=== PATIENT | female | born 1965 | race Caucasian/White ===

== ENCOUNTER 2017-01-29 17:40 | Emergency (ER) | payer OTHER ==
[~2017-01-29] VITALS: Ht 152.4 cm; Wt 105.5 kg
[~2017-01-29 17:40] MED LIST: CETI10CA PO; CLON0.5T4 PO; CYCL-319 PO; ESTR1TAB80 PO; HYDR-3498 PO; IBUP-1542 PO; OMEP20TA42 PO; SERT25TA PO; TRAZ100T15 PO; [UNRECOGNIZED DRUG - CODE] PO
[2017-01-29 17:41] VITALS: Ht 152.4 cm; Wt 105.5 kg
--- NOTE | 2017-01-29 19:19 | ERD ---
ER Documentation Chief Complaint Date/Time DATE: 01/29/17 TIME: 19:16 Chief Complaint back pain HPI Female presents to the ER with mid back pain that started this morning. Patient has had lower back pain in the past and states she has had a lot of back pain in general for the last 2-3 months. Patient states that mid back pain is severe and constant it is worse whenever she moves or twists her back. Patient did not fall. She denies any shortness of breath or chest pain. Patient states that pain radiates up into her right shoulder and into her right ear. Patient has been taking ibuprofen for the pain however it does not help. Patient denies any urinary bowel incontinence. She denies any fevers or chills. She denies any recent cough or cold symptoms. ROS 12 point review of systems was done, all negative except per HPI. Medications Home Meds Active Scripts Naproxen* (Naprosyn*) 500 Mg Tablet, 500 MG PO BID Y for PAIN AND/OR INFLAMMATION, #30 TAB Prov:BERNY POP 01/29/17 Tramadol HCl (Tramadol HCl) 50 Mg Tablet, 50 MG PO Q4 Y for PAIN, #20 TAB Prov:BERNY POP 01/29/17 Cetirizine Hcl* (Zyrtec*) 10 Mg Capsule, 10 MG PO DAILY, #10 TAB.CHEW Prov:FAMILIA PARKS MD 05/16/16 Ibuprofen* (Motrin*) 600 Mg Tab, 600 MG PO Q6H Y for PAIN, #20 TAB Prov:FAMILIA PARKS MD 05/16/16 Cyclobenzaprine Hcl* (Cyclobenzaprine Hcl*) 10 Mg Tablet, 10 MG PO Q8 Y for PAIN , #18 TAB Prov:FAMILIA PARKS MD 05/16/16 Hydrocodone Bit-Acetaminophen* ([place]*) 5-325 Mg Tab, 1 TAB PO Q4H Y for PAIN, # 14 TAB Prov:FAMILIA PARKS MD 05/16/16 Reported Medications Sertraline Hcl* (Zoloft*) 25 Mg Tablet, 25 MG PO DAILY, #30 TAB 04/07/16 Pseudoephedrine Hcl* (Nasal Decongestant*) 30 Mg Tablet, 30 MG PO BID Y for CONGESTION, TAB 01/19/16 Trazodone Hcl* (Trazodone Hcl*) 100 Mg Tablet, 300 MG PO QHS, #30 TAB 01/19/16 Clonazepam* (Clonazepam*) 0.5 Mg Tablet, 0.5 MG PO QHS, TAB 01/19/16 Estrogen,Conj-Medroxyprogest Acet (Prempro) 0.3-1.5 Mg Tablet, 1 TAB PO DAILY, TAB 01/19/16 Omeprazole (Omeprazole) 20 Mg Tablet.dr, 20 MG PO AC BREAKFAST 04/26/11 Allergies Allergies: Coded Allergies: No Known Drug Allergies (Verified Allergy, Mild, 01/19/16) PMhx/Soc History of Surgery: No Anesthesia Reaction: No Hx Neurological Disorder: No Hx Respiratory Disorders: No Hx Cardiac Disorders: Yes (HTN) Hx Psychiatric Problems: Yes (PANIC ATTACKS, ANXIETY, DEPRESSION) Hx Miscellaneous Medical Probl: No Hx Alcohol Use: No Hx Substance Use: No Hx Tobacco Use: No Smoking Status: Never smoker Physical Exam Vitals Vital Signs Date Time Temp Pulse Resp B/P Pulse Ox O2 Delivery O2 Flow Rate FiO2 01/29/17 17:41 97.0 73 20 135/81 98 Physical Exam GENERAL: The patient is well developed and appropriate for usual state of health , in no apparent distress. NECK: C-spine is soft and supple. There is no cervical lymphadenopathy. CHEST: Clear to auscultation bilaterally. There are no rales, wheezes or rhonchi. HEART: Regular rate and rhythm. No murmurs, clicks, rubs or gallops. ABDOMEN: Soft, nontender and nondistended. Good bowel sounds. No rebound or guarding. No gross peritonitis. No gross organomegaly or masses. No Nash sign or McBurney point tenderness. No pulsatile abdominal mass. BACK: No midline or flank tenderness. Tender to palpation to the thoracic spine. Tense paraspinal muscles. Negative leg raise test. No step- offs. EXTREMITIES: Patient has full range of motion of her right shoulder. Negative drop arm test. Neurovascularly intact. No deformities, redness, swelling. NEURO: Alert and oriented. Results 24 hrs Current Medications Medications (Trade) Dose Ordered Sig/Eve Route PRN Reason Start Time Stop Time Status Last Admin Dose Admin Acetaminophen/ Hydrocodone Bitart ([place] (5/325)) 1 tab ONCE ONCE PO 01/29/17 19:30 3/25/17 19:31 DC 01/29/17 19:10 Ketorolac Tromethamine (Toradol) 60 mg ONCE STAT IM 01/29/17 20:19 01/29/17 20:20 DC Procedures/MDM Differential Diagnosis includes but is not limited to back strain, vertebral fracture, epidural abscess, cauda equina, herniated disc, AAA rupture, kidney stones, UTI, pyelonephritis. Patient's x-ray was positive for idiopathic skeletal hyperostosis. May be the cause of her pain. Patient is afebrile and well-appearing. Patient was given [place] and Toradol here in the ER. She will be sent home with tramadol and ibuprofen. She needs to urgently follow up with an orthopedic doctor for this problem. At this time suspicion for cauda equina or epidural abscess is low. Patient is neurovascularly intact to her lower extremities and her upper extremities. Patient needs to follow-up with her PCP within 1-2 days and obtain referral or return to ER sooner if symptoms worsen. My medical decision making was shared with the patient she understands and agrees with plan. Departure Diagnosis: Primary Impression: Back pain Condition: Stable BERNY POP Jan 29, 2017 19:19
[2017-01-29] MEDS ORDERED: HYDROCODONE/APAP (5/325) TAB PO ONE (19:30)
--- NOTE | 2017-01-29 20:15 | RADRPT ---
PROCEDURE: XR thoracic spine CLINICAL INDICATION: Mid back pain. TECHNIQUE: AP, swimmers and lateral views of the thoracic spine were obtained. COMPARISON: None available FINDINGS: Bone architecture and mineralization are preserved. Thoracic kyphosis is preserved. Vertebral body s tature is intact. No significant disk space narrowing is present. No lytic or blastic lesion is sha dent. Bridging syndesmophytes anteriorly and to the right are present from at T5-T12 raising concern for diffuse idiopathic skeletal hyperostosis The posterior elements and paraspinal soft tissues ar e normal. RPTAT:HJJR IMPRESSION: 1. Bridging anterior right paracentral syndesmophytes from the T5-T12 level raise concern for diffus e idiopathic skeletal hyperostosis. 2. No disk space narrowing or acute thoracic spine abnormality. Physician Agustin Date Time Electronically viewed and signed by Physician Agustin on 01/29/2017 20:15 /
[2017-01-29] MEDS ORDERED: KETOROLAC 60 MG INJ IM STA (20:19)
[2017-01-29] MEDS ORDERED: TRAM50TA2 PO (20:27)
[2017-01-29] MEDS ORDERED: NAPR-260 PO (20:28)
[2017-01-29 20:58] VITALS: BP 140/77; PULSE 77; RESP 20; TEMP 98.3
== END 2017-01-29 21:00 | disposition home or self-care (01) ==
LOC: FTE 17:40
DX: M54.5 Low back pain (principal); I10 Essential (primary) hypertension
CPT/HCPCS: 72072; 96372; J1885; Z7502; Z7610

== ENCOUNTER 2017-02-14 16:55 | Emergency (ER) | payer OTHER ==
[~2017-02-14] VITALS: Ht 152.4 cm; Wt 101.0 kg
[~2017-02-14 16:55] MED LIST changes: +NAPR-260 PO; +TRAM50TA2 PO
[2017-02-14 16:57] VITALS: Ht 152.4 cm; Wt 101.0 kg
[2017-02-14] MEDS ORDERED: CYCL-319 PO (18:42)
[2017-02-14] MEDS ORDERED: NAPR-260 PO (18:42)
[2017-02-14] MEDS ORDERED: KETOROLAC 30 MG INJ IM STA (18:45)
--- NOTE | 2017-02-14 19:04 | ERD ---
ER Documentation Chief Complaint Date/Time DATE: 02/14/17 TIME: 18:56 Chief Complaint RIGHT SHOULDER PAIN RADIAITING TO NECK. DENIES ANY TRAUMA HPI Patient is a 51-year-old female with past medical history of hypertension presents emergency department with her back pain and right shoulder pain. Patient states pain is been present for last 2 months. Patient states that she was seen here [facility] 1 month ago for similar pain. Patient denies any recent trauma or falls. Patient denies any chest pain, shortness of breath, left shoulder pain, left arm pain or diaphoresis. Patient states that she had "2 episodes of spasms today". Patient states his been taking tramadol which does help with the pain. Patient states that she does have an appointment pending to see a conveyor line battery charger. Incontinence, stool incontinence, night pain, fever, chills. ROS All systems reviewed and are negative except as per history of present illness. Medications Home Meds Active Scripts Cyclobenzaprine Hcl* (Cyclobenzaprine Hcl*) 10 Mg Tablet, 10 MG PO TID, #15 TAB Prov:CATINA JURADO PA-C 02/14/17 Naproxen* (Naprosyn*) 500 Mg Tablet, 500 MG PO BID Y for PAIN AND/OR INFLAMMATION, #30 TAB Prov:CATINA JURADO PA-C 02/14/17 Naproxen* (Naprosyn*) 500 Mg Tablet, 500 MG PO BID Y for PAIN AND/OR INFLAMMATION, #30 TAB Prov:BERNY POP 01/29/17 Tramadol HCl (Tramadol HCl) 50 Mg Tablet, 50 MG PO Q4 Y for PAIN, #20 TAB Prov:BERNY POP 01/29/17 Cetirizine Hcl* (Zyrtec*) 10 Mg Capsule, 10 MG PO DAILY, #10 TAB.CHEW Prov:FAMILIA PARKS MD 05/16/16 Ibuprofen* (Motrin*) 600 Mg Tab, 600 MG PO Q6H Y for PAIN, #20 TAB Prov:FAMILIA PARKS MD 05/16/16 Cyclobenzaprine Hcl* (Cyclobenzaprine Hcl*) 10 Mg Tablet, 10 MG PO Q8 Y for PAIN , #18 TAB Prov:FAMILIA PARKS MD 05/16/16 Hydrocodone Bit-Acetaminophen* ([place]*) 5-325 Mg Tab, 1 TAB PO Q4H Y for PAIN, # 14 TAB Prov:FAMILIA PARKS MD 05/16/16 Reported Medications Sertraline Hcl* (Zoloft*) 25 Mg Tablet, 25 MG PO DAILY, #30 TAB 04/07/16 Pseudoephedrine Hcl* (Nasal Decongestant*) 30 Mg Tablet, 30 MG PO BID Y for CONGESTION, TAB 01/19/16 Trazodone Hcl* (Trazodone Hcl*) 100 Mg Tablet, 300 MG PO QHS, #30 TAB 01/19/16 Clonazepam* (Clonazepam*) 0.5 Mg Tablet, 0.5 MG PO QHS, TAB 01/19/16 Estrogen,Conj-Medroxyprogest Acet (Prempro) 0.3-1.5 Mg Tablet, 1 TAB PO DAILY, TAB 01/19/16 Omeprazole (Omeprazole) 20 Mg Tablet.dr, 20 MG PO AC BREAKFAST 04/26/11 Allergies Allergies: Coded Allergies: No Known Drug Allergies (Verified Allergy, Mild, 01/19/16) PMhx/Soc History of Surgery: No Anesthesia Reaction: No Hx Neurological Disorder: No Hx Respiratory Disorders: No Hx Cardiac Disorders: Yes (HTN) Hx Psychiatric Problems: Yes (PANIC ATTACKS, ANXIETY, DEPRESSION) Hx Miscellaneous Medical Probl: No Hx Alcohol Use: No Hx Substance Use: No Hx Tobacco Use: No FmHx Family History: No diabetes Physical Exam Vitals Vital Signs Date Time Temp Pulse Resp B/P Pulse Ox O2 Delivery O2 Flow Rate FiO2 02/14/17 16:57 97.7 80 18 159/72 98 Physical Exam GENERAL: Well-developed, well-nourished female. Appears in no acute distress. Speaking in full sentences HEAD: Normocephalic, atraumatic. EYES: Pupils are equally reactive bilaterally. EOMs grossly intact. No conjunctival erythema. ENT: Moist mucous membranes. No uvula deviation. No kissing tonsils. NECK: Supple. No meningismus. Normal range of motion of the neck. LUNG: Clear to auscultation bilaterally. No rhonchi, wheezing, rales or coarse breath sounds. Tender to palpation of the chest wall. Pain is reproducible. HEART: Regular rate and rhythm. No murmurs, rubs or gallops. ABDOMEN: Soft, nontender, and nondistended. Positive bowel sounds in all four quadrants. No rebound tenderness, no guarding. (-) McBurney's point tenderness. No CVA tenderness. BACK: No midline tenderness. Tender to palpation of the right trapezius muscles. EXTREMITIES: Equal pulses bilaterally. No peripheral clubbing, cyanosis or edema. No unilateral leg swelling. NEUROLOGIC: Alert and oriented. Moving all four extremities without any difficulty. Normal speech. Steady gait. SKIN: Normal color. Warm and dry. No rashes or lesions. RIGHT ARM: No obvious deformity, erythema, ecchymosis or swelling. Skin intact. No bursal swelling. Decreased range of motion secondary to pain. Patient is able to extend above 100. Tender to palpation of the anterior shoulder, anterior chest wall. Nontender to palpation of the humerus, elbow, forearm, wrist or hand.. Sensation intact to light touch. Neurovascularly intact. (Able to give thumbs up, make an ok sign, cross digits 2 and 3, thumb to pinky opposition. 2+ RP.) No snuffbox tenderness. Results 24 hrs Current Medications Medications (Trade) Dose Ordered Sig/Eve Route PRN Reason Start Time Stop Time Status Last Admin Dose Admin Ketorolac Tromethamine (Toradol) 30 mg ONCE STAT IM 02/14/17 18:45 02/14/17 18:46 DC 02/14/17 18:51 Procedures/MDM ED COURSE: The patient was stable throughout ED course. I kept the patient and/or family informed of laboratory and diagnostic imaging results throughout the ED course. MEDICATIONS GIVEN: Toradol IM Patient tolerated medication well with no adverse reactions. Patient reported improvement in pain. MEDICAL DECISION MAKING: This is a 51-year-old female who presents with lower back pain, right shoulder pain, neck pain 2 months. Vital signs were reviewed. Patient was afebrile. Patient denied any recent trauma, falls, saddle anesthesia, urinary incontinence , stool incontinence, fever, chills or night pain. Given that patient denied any recent falls or trauma, at this time x-ray imaging was not indicated. At this time, the patient's presentation is most consistent with muscle strain versus muscle spasms. I have a much lower clinical concern for cervical spine dislocation, cervical spine fracture, epidural abscess, meningitis, whiplash injury, spinal fracture, cauda equina, pyelonephritis, spinal metastasis, osteomyelitis, ACS, or any acute neurological deficit. We will to rule out any rheumatological disorders including PMR at this time. Patient was advised to follow-up with her primary care physician for referral to see a neurologist.. PRESCRIPTIONS: Flexeril Naproxen DISCHARGE: At this time, patient is stable for discharge and outpatient management. RICE therapy and ROM exercises were advised to avoid stiffness. I have instructed the patient to follow-up with his/her primary care physician in 1-2 days. I have discussed with the patient the possibility of needing to see an director of orthopedics/ conveyor line battery charger for further workup and imaging if the pain persists. I have instructed the patient to promptly return to the ER for any new or worsening symptoms including increased pain, swelling, redness, warmth or fever. The patient and/or family expressed understanding of and agreement with this plan. All questions were answered. Home care instructions were provided. Departure Diagnosis: Primary Impression: Shoulder pain Laterality: right Chronicity: unspecified Qualified Code: M25.511 - Right shoulder pain, unspecified chronicity Condition: Stable Patient Instructions: Shoulder Pain (Uncertain Cause) Referrals: KATELYN BEY MD (PCP) [facility] Additional Instructions: Call your primary care doctor TOMORROW for an appointment during the next 1-2 days.See the doctor sooner or return here if your condition worsens before your appointment time. Patient may need to follow-up with an director of orthopedics for further management of her shoulder pain. Unable to rule out any ligament or tendon injuries at this time. Patient may need an MRI and outpatient basis. CATINA JURADO PA-C Feb 14, 2017 19:04
[2017-02-14 19:18] VITALS: BP 157/92; PULSE 69; RESP 16; TEMP 98.8
== END 2017-02-14 19:17 | disposition home or self-care (01) ==
LOC: FTE 16:55
DX: M25.511 Pain in right shoulder (principal); I10 Essential (primary) hypertension
CPT/HCPCS: 96372; J1885; Z7502

== ENCOUNTER 2017-03-02 16:54 | Emergency (ER) | payer OTHER ==
[~2017-03-02] VITALS: Ht 157.5 cm; Wt 104.0 kg
[2017-03-02 17:00] VITALS: Ht 157.5 cm; Wt 104.0 kg
[2017-03-02] MEDS ORDERED: KETOROLAC 60 MG INJ IM STA (18:05)
--- NOTE | 2017-03-02 19:19 | RADRPT ---
PROCEDURE: XR Foot. CLINICAL INDICATION: Left foot pain. TECHNIQUE: AP, lateral and oblique views of the left foot was obtained. The images were reviewed on a PACS workstation. COMPARISON: None. FINDINGS: The bones of the foot appear intact, with no evidence of fracture, dislocation, or subluxation. The joint spaces are preserved. Bone mineralization is normal. The soft tissue structures are intact. Do rsal and plantar calcaneal spurs are seen. IMPRESSION: Dorsal and plantar calcaneal spurs. RPTAT: HPNM Physician Sandra Date Time Electronically viewed and signed by Physician Sandra on 03/02/2017 19:19 /
[2017-03-02] MEDS ORDERED: NAPR-260 PO (20:11)
--- NOTE | 2017-03-02 20:17 | ERD ---
ER Documentation Chief Complaint Date/Time DATE: 03/02/17 TIME: 20:14 Chief Complaint MECHANICAL FALL, LEFT BIG TOE PAIN HPI 52-year-old female patient with no significant past medical history presents to the ED complaining of a mechanical fall that occurred 1 week ago. States that she sustained a left great toe injury. Reports that she also has rug back on her bilateral forearms and shins. States that she accidentally fell down on a few stairs but denies any head or neck injuries. Denies any loss of consciousness. Denies any loss of sensation, loss of range of motion, chest pain, shortness of breath, nausea, vomiting, weakness, numbness or tingling, saddle anesthesia, urine or bowel incontinence. ROS All systems reviewed and are negative except as per history of present illness. Medications Home Meds Active Scripts Naproxen* (Naprosyn*) 500 Mg Tablet, 500 MG PO BID Y for PAIN AND/OR INFLAMMATION, #30 TAB take with food Prov:VICTOR HUGO PERRY PA-C 03/02/17 Cyclobenzaprine Hcl* (Cyclobenzaprine Hcl*) 10 Mg Tablet, 10 MG PO TID, #15 TAB Prov:CATINA JURADO PA-C 02/14/17 Naproxen* (Naprosyn*) 500 Mg Tablet, 500 MG PO BID Y for PAIN AND/OR INFLAMMATION, #30 TAB Prov:CATINA JURADO PA-C 02/14/17 Naproxen* (Naprosyn*) 500 Mg Tablet, 500 MG PO BID Y for PAIN AND/OR INFLAMMATION, #30 TAB Prov:BERNY POP 01/29/17 Tramadol HCl (Tramadol HCl) 50 Mg Tablet, 50 MG PO Q4 Y for PAIN, #20 TAB Prov:DONNBERNY LEAVITT C 01/29/17 Cetirizine Hcl* (Zyrtec*) 10 Mg Capsule, 10 MG PO DAILY, #10 TAB.CHEW Prov:FAMILIA PAKRS MD 05/16/16 Ibuprofen* (Motrin*) 600 Mg Tab, 600 MG PO Q6H Y for PAIN, #20 TAB Prov:FAMILIA PARKS MD 05/16/16 Cyclobenzaprine Hcl* (Cyclobenzaprine Hcl*) 10 Mg Tablet, 10 MG PO Q8 Y for PAIN , #18 TAB Prov:FAMILIA PARKS MD 05/16/16 Hydrocodone Bit-Acetaminophen* ([place]*) 5-325 Mg Tab, 1 TAB PO Q4H Y for PAIN, # 14 TAB Prov:FAMILIA PARKS MD 05/16/16 Reported Medications Sertraline Hcl* (Zoloft*) 25 Mg Tablet, 25 MG PO DAILY, #30 TAB 04/07/16 Pseudoephedrine Hcl* (Nasal Decongestant*) 30 Mg Tablet, 30 MG PO BID Y for CONGESTION, TAB 01/19/16 Trazodone Hcl* (Trazodone Hcl*) 100 Mg Tablet, 300 MG PO QHS, #30 TAB 01/19/16 Clonazepam* (Clonazepam*) 0.5 Mg Tablet, 0.5 MG PO QHS, TAB 01/19/16 Estrogen,Conj-Medroxyprogest Acet (Prempro) 0.3-1.5 Mg Tablet, 1 TAB PO DAILY, TAB 01/19/16 Omeprazole (Omeprazole) 20 Mg Tablet.dr, 20 MG PO AC BREAKFAST 04/26/11 Allergies Allergies: Coded Allergies: No Known Drug Allergies (Verified Allergy, Mild, 03/02/17) PMhx/Soc History of Surgery: No Anesthesia Reaction: No Hx Neurological Disorder: No Hx Respiratory Disorders: No Hx Cardiac Disorders: Yes (HTN) Hx Psychiatric Problems: Yes (PANIC ATTACKS, ANXIETY, DEPRESSION) Hx Miscellaneous Medical Probl: Yes (HTN) Hx Alcohol Use: No Hx Substance Use: No Hx Tobacco Use: Yes (1/2 ppd) Smoking Status: Current every day smoker Physical Exam Vitals Vital Signs Date Time Temp Pulse Resp B/P Pulse Ox O2 Delivery O2 Flow Rate FiO2 03/02/17 17:00 98.1 88 18 141/78 98 Physical Exam Const: [id number], well-nourished. In no acute distress. Head: Atraumatic, normocephalic Eyes: Normal Conjunctiva without injection ENT: Normal external ear, nose and mouth. Neck: Full range of motion. No meningismus. Resp: Clear to auscultation bilaterally. No wheezing, rhonchi, rales, or crackles. No accessory muscle use. No retractions. Cardio: Regular rate and rhythm, no murmurs Skin: No petechiae or rashes Back: No midline tenderness. No CVA tenderness. Ext: No cyanosis, or edema. Cap refill less than 2 seconds. Distal pulses intact bilaterally. Tenderness to palpation of the dorsal aspect left great toe. No deformities noted. No ecchymosis. No erythema. Full range of motion of the IP and MTP joints of the bilateral feet. Other extremities have full range of motion as well. Neur: Awake and alert. Limping gait due to the left great toe pain. Muscle strength 5/5. Sensation intact bilaterally. Psych: Normal Mood and Affect Results 24 hrs Current Medications Medications (Trade) Dose Ordered Sig/Eve Route PRN Reason Start Time Stop Time Status Last Admin Dose Admin Ketorolac Tromethamine (Toradol) 60 mg ONCE STAT IM 03/02/17 18:05 03/02/17 18:06 DC 03/02/17 18:28 Procedures/MDM This is a 52-year-old female patient with a past medical history of hypertension presents to the ED complaining of a left great toe injury. Patient is afebrile and nontoxic-appearing. Patient has normal vital signs. A left foot x-ray was ordered to further evaluate patient based on patient's left great toe injury.. No tenderness to palpation of the lateral or medial malleolus. Based on Phillips Ankle Rule, patient does not need an ankle x-ray. Patient was given Toradol here in the ED with improvement of her pain. PROCEDURE: XR Foot. CLINICAL INDICATION: Left foot pain. TECHNIQUE: AP, lateral and oblique views of the left foot was obtained. The images were reviewed on a PACS workstation. COMPARISON: None. FINDINGS: The bones of the foot appear intact, with no evidence of fracture, dislocation, or subluxation. The joint spaces are preserved. Bone mineralization is normal. The soft tissue structures are intact. Dorsal and plantar calcaneal spurs are seen. IMPRESSION: Dorsal and plantar calcaneal spurs. Patient is placed in a bennett tape splint of great toe and adjacent toe. Splint Assessment: Neurovascularly intact pre and post splint placement with good fit. Patient's extremity symptoms have stabilized while they have been evaluated in the department and are appropriate for outpatient follow up. No evidence of fractures, dislocations, compartment syndrome, neurologic injury, vascular injury, open joint, open fracture, tendon laceration, septic arthritis, osteomyelitis, DVT, foreign body, or other emergent conditions. Discharge medications: Naproxen Follow up with primary care physician in 1-2 days. Instructed patient to return to the ED sooner for any worsening symptoms. Patient's questions were answered. Patient understood and agreed with discharge plan. Patient discharged stable. Departure Diagnosis: Primary Impression: Injury of left great toe Encounter type: initial encounter Qualified Code: S99.922A - Injury of left great toe, initial encounter Condition: Stable Patient Instructions: Fall, Mechanical, Sprain Toe, Fall Prevention Referrals: [facility] YOU HAVE RECEIVED A MEDICAL SCREENING EXAM AND THE RESULTS INDICATE THAT YOU DO NOT HAVE A CONDITION THAT REQUIRES URGENT TREATMENT IN THE EMERGENCY DEPARTMENT. FURTHER EVALUATION AND TREATMENT OF YOUR CONDITION CAN WAIT UNTIL YOU ARE SEEN IN YOUR DOCTORS OFFICE WITHIN THE NEXT 1-2 DAYS. IT IS YOUR RESPONSIBILITY TO MAKE AN APPOINTMENT FOR FOLOW-UP CARE. IF YOU HAVE A PRIMARY DOCTOR --you should call your primary doctor and schedule an appointment IF YOU DO NOT HAVE A PRIMARY DOCTOR YOU CAN CALL OUR PHYSICIAN REFERRAL HOTLINE AT IF YOU CAN NOT AFFORD TO SEE A PHYSICIAN YOU CAN CHOSE FROM THE FOLLOWING [facility] [address] [facility]. [facility] [address] [facility]. [facility] [address] [facility] [facility] [address] [facility]. [facility] [address] [facility]. [facility]. [address] [facility]. [facility] YOU HAVE RECEIVED A MEDICAL SCREENING EXAM AND THE RESULTS INDICATE THAT YOU DO NOT HAVE A CONDITION THAT REQUIRES URGENT TREATMENT IN THE EMERGENCY DEPARTMENT. FURTHER EVALUATION AND TREATMENT OF YOUR CONDITION CAN WAIT UNTIL YOU ARE SEEN IN YOUR DOCTORS OFFICE WITHIN THE NEXT 1-2 DAYS. IT IS YOUR RESPONSIBILITY TO MAKE AN APPOINTMENT FOR FOLOW-UP CARE. IF YOU HAVE A PRIMARY DOCTOR --you should call your primary doctor and schedule and appointment IF YOU DO NOT HAVE A PRIMARY DOCTOR YOU CAN CALL OUR PHYSICIAN REFERRAL HOTLINE AT . IF YOU CAN NOT AFFORD TO SEE A PHYSICIAN YOU CAN CHOSE FROM THE FOLLOWING [facility] INSTITUTIONS: [facility] [address] [place] [address] [facility] [address] [place] [address] [facility] [address] [place] [address] [facility] URGENT CARE/SPECIALTIES Additional Instructions: Call your primary care doctor TOMORROW for an appointment during the next 1-2 days.See the doctor sooner or return here if your condition worsens before your appointment time. VICTOR HUGO PERRY PA-C Mar 02, 2017 20:17 VICTOR HUGO PERRY PA-C Mar 02, 2017 20:17
== END 2017-03-02 20:20 | disposition home or self-care (01) ==
LOC: FTE 16:54
DX: S99.922A Unspecified injury of left foot, initial encounter (principal); I10 Essential (primary) hypertension; F17.210 Nicotine dependence, cigarettes, uncomplicated; W10.9XXA Fall (on) (from) unspecified stairs and steps, initial encounter; Y92.9 Unspecified place or not applicable
CPT/HCPCS: 73630; 96372; J1885; Z7502

== ENCOUNTER 2017-04-08 05:50 | Day surgery (SDC) | payer OTHER ==
[2017-04-07 09:49] VITALS: Ht 152.4 cm; Wt 99.0 kg
[~2017-04-08] VITALS: Ht 152.4 cm; Wt 99.0 kg
[2017-04-08] VITALS (8 sets, daily range): BP systolic 139–162; BP diastolic 66–85; PULSE 80–89; RESP 20–22
[2017-04-08] MEDS ORDERED: BUPR300T36 PO (07:15)
[2017-04-08] MEDS ORDERED: SERT-165 PO (07:15)
[2017-04-08] MEDS ORDERED: AMLO-147 PO (07:15)
--- NOTE | 2017-04-08 07:50 | HPN ---
Date/Time of Note Date/Time of Note DATE: 04/08/17 TIME: 07:49 Interval H&P Admission Note Pt. seen H&P reviewed: No system changes ANGELY YATES DPM Apr 08, 2017 07:50
[2017-04-08] MEDS ORDERED: METOCLOPRAMIDE 10 MG INJ ONE (08:00)
[2017-04-08] MEDS ORDERED: MIDAZOLAM 1 MG/ML 2 ML INJ ONE (08:00)
[2017-04-08] MEDS ORDERED: ONDANSETRON 4 MG INJ ONE (08:00)
[2017-04-08] MEDS ORDERED: FENTAnyl 50 MCG/ML VIAL ONE ×2 (08:00→08:30)
[2017-04-08] MEDS ORDERED: PROPOFOL 20 ML ONE ×2 (08:00→08:29)
[2017-04-08] MEDS ORDERED: CEFAZOLIN 1 GM INJ ONE (08:00)
[2017-04-08] MEDS ORDERED: METOPROLOL 5 MG INJ ONE (08:19)
[2017-04-08] MEDS ORDERED: BUPIVACAINE 0.5% (SDV) 30 ML INJ ONE (08:23)
[2017-04-08] MEDS ORDERED: MEPERIDINE 25 MG INJ IV PRN (08:30)
[2017-04-08] MEDS ORDERED: HYDROmorphONE (0.2 MG/ML) 10ML SYG IV PRN ×2 (08:30)
[2017-04-08] MEDS ORDERED: ONDANSETRON 4 MG INJ IV PRN (08:30)
[2017-04-08] MEDS ORDERED: OXYCODONE/ACETAMINOPHEN (5/325) TAB PO PRN ×2 (08:30)
[2017-04-08] MEDS ORDERED: DIPHENHYDRAMINE 50 MG INJ IV PRN (08:30)
[2017-04-08] MEDS ORDERED: METOCLOPRAMIDE 10 MG INJ IV PRN (08:30)
[2017-04-08] MEDS ORDERED: KETOROLAC 30 MG INJ ONE (08:32)
[2017-04-08] MEDS ORDERED: POVIDONE IODINE 10% 28.4 GM OINT ONE (08:46)
[2017-04-08] MEDS: HYDROmorphONE (0.2 MG/ML) 10ML SYG IV PRN ×3 (09:13→09:42)
--- NOTE | 2017-04-08 12:20 | PREOPHP ---
DATE OF ADMISSION: 04/08/2017 The patient is being admitted to the hospital for elective foot surgery, palliative treatment unsuccessful. The patient has been explained the surgery, complications, alternatives and elected to have elective foot surgery. The patient has pain in the bottom of the big toe on the left foot. ALLERGIES: The patient denies any. MEDICATIONS: The patient has a long list of medicines. See her H and P besides , but they are mostly for blood pressure and stomach: Sertraline, Atorvastatin, trazodone, loratadine, oxybutynin and omeprazole, bupropion HCL; those are the different medicines. REVIEW OF SYSTEMS: Negative heart, lung, liver, kidney, thyroid. Diabetes negative. SOCIAL HISTORY: Smoking a pack per day. Alcohol negative. PHYSICAL EXAMINATION: See any other pertinent history and upper extremity physical exam by Dr. Menchaca. LOWER EXTREMITY: Shows a DP and PT equal and regular. NEUROLOGICAL: Negative for pathology. DERMATOLOGICAL: Shows a lesion plantar, IP joint, hallux on the left foot. MUSCULOSKELETAL: Shows an accessory bone plantar right IP joint, hallux, left foot. FINAL DIAGNOSIS: An accessory sesamoid IP joint, hallux, left. Dictated By: ANGELY GARNETT/GÉNESIS Conf#: [id number] DID#: [id number] BRO
== END 2017-04-08 11:20 | disposition home or self-care (01) ==
LOC: SDS 05:50 → EDBD 13:00
PROVIDERS: ATTEND Podiatrist
DX: M25.872 Other specified joint disorders, left ankle and foot (principal); I10 Essential (primary) hypertension; E78.5 Hyperlipidemia, unspecified; E66.01 Morbid (severe) obesity due to excess calories; Z68.41 Body mass index [BMI] 40.0-44.9, adult
CPT/HCPCS: 28315; 88304; 88311; J0690; J1170; J1200; J1885; J2250; J2405; J2765; J3010; Z7512; Z7610

== ENCOUNTER 2017-06-02 18:44 | Emergency (ER) | payer OTHER ==
[~2017-06-02] VITALS: Ht 152.4 cm; Wt 97.5 kg
[~2017-06-02 18:44] MED LIST changes: +AMLO-147 PO; +BUPR300T36 PO; -CYCL-319 PO; +SERT-165 PO; -SERT25TA PO
[2017-06-02 18:48] VITALS: Ht 152.4 cm; Wt 97.5 kg
[2017-06-02] MEDS ORDERED: predniSONE 20 MG TAB PO STA (19:24)
[2017-06-02] MEDS ORDERED: IPRATROPIUM (NEB) 0.5 MG/2.5 ML AMP INH STA (19:24)
[2017-06-02] MEDS ORDERED: ALBUTEROL 0.5% (NEB) 2.5 MG/0.5 ML AMP INH STA (19:24)
--- NOTE | 2017-06-02 20:26 | RADRPT ---
PROCEDURE: Chest x-ray CLINICAL INDICATION: Cough. Asthma. TECHNIQUE: Chest single view COMPARISON: 01/19/2016 FINDINGS: The heart is normal in size. The pulmonary vessels are normal in caliber. The lungs are clear. Th e costophrenic angles are sharp. The visualized bony thorax is unremarkable. IMPRESSION: No acute cardiopulmonary disease. RPTAT: HH .Fernando Meyer MD, Date Time Electronically viewed and signed by .Fernando Meyer MD, MD on 06/02/2017 20:26 .W/
[2017-06-02] MEDS ORDERED: GUAIFENESIN/CODEINE 5ML CUP PO ONE (20:30)
[2017-06-02 20:46] VITALS: TEMP 98
[2017-06-02] MEDS ORDERED: LORAZEPAM 1 MG TAB PO ONE (21:00)
[2017-06-02] MEDS ORDERED: CEPASTAT LOZENGE MT ONE (21:00)
[2017-06-02] MEDS ORDERED: UDROBAC PO (22:11)
[2017-06-02] MEDS ORDERED: PRED20TA PO (22:11)
[2017-06-02] MEDS ORDERED: CEPASTAT MT (22:11)
[2017-06-02] MEDS ORDERED: AZIT250T94 PO (22:11)
--- NOTE | 2017-06-02 22:23 | ERD ---
ER Documentation Chief Complaint Date/Time DATE: 06/02/17 TIME: 22:18 Chief Complaint cough x 1 month, headache, sweats HPI 52-year-old female patient with a past medical history of hypertension presents to the ED complaining of a persistent dry cough that has occurred intermittently for 1 month. Reports that she saw her primary care physician 3 weeks ago and was not prescribed any medications. States that when this happens she usually gets pneumonia. States that she is taking superior and, loratadine, atorvastatin, sertraline, omeprazole, benazepril, oxybutynin tendon. States that when she coughs it causes her to have a headache and feels that she is having sweats. Denies any fever, chills, chest pain, shortness of breath, wheezing, abdominal pain, nausea, vomiting, diarrhea. ROS All systems reviewed and are negative except as per history of present illness. Medications Home Meds Active Scripts Guaifenesin-Codeine Phosphate* (Robitussin* AC) 5 Ml Syrup, 10 ML PO QHS Y for COUGH, #90 ML Prov:VICTOR HUGO PERRY PA-C 06/02/17 Prednisone* (Prednisone*) 20 Mg Tab, 40 MG PO DAILY for 4 Days, TAB Prov:VICTOR HUGO PERRY PA-C 06/02/17 Throat Lozenges* (Cepastat*) 9 Julia Lozenge, 1 LOZENGE MT Q3H Y, #14 LOZENGE Prov:VICTOR HUGO PERRY PA-C 06/02/17 Azithromycin* (Zithromax*) 250 Mg Tablet, 250 MG PO .ANGEL DIRECTED, #6 TAB TAKE 500 MG (2 TABS) THE FIRST DAY THEN 250 MG (1 TAB) DAYS 2-5 Prov:VICTOR HUGO PERRY PA-C 06/02/17 Naproxen* (Naprosyn*) 500 Mg Tablet, 500 MG PO BID Y for PAIN AND/OR INFLAMMATION, #30 TAB take with food Prov:VICTOR HUGO PERRY PA-C 03/02/17 Naproxen* (Naprosyn*) 500 Mg Tablet, 500 MG PO BID Y for PAIN AND/OR INFLAMMATION, #30 TAB Prov:CATINA JURADO PA-C 02/14/17 Naproxen* (Naprosyn*) 500 Mg Tablet, 500 MG PO BID Y for PAIN AND/OR INFLAMMATION, #30 TAB Prov:DONNBERNY C 01/29/17 Tramadol HCl (Tramadol HCl) 50 Mg Tablet, 50 MG PO Q4 Y for PAIN, #20 TAB Prov:DONNBERNY C 01/29/17 Cetirizine Hcl* (Zyrtec*) 10 Mg Capsule, 10 MG PO DAILY, #10 TAB.CHEW Prov:FAMILIA PARKS MD 05/16/16 Ibuprofen* (Motrin*) 600 Mg Tab, 600 MG PO Q6H Y for PAIN, #20 TAB Prov:FAMILIA PARKS MD 05/16/16 Hydrocodone Bit-Acetaminophen* (Quinault*) 5-325 Mg Tab, 1 TAB PO Q4H Y for PAIN, # 14 TAB Prov:FAMILIA PARKS MD 05/16/16 Reported Medications Bupropion Hcl* (Bupropion XL*) 300 Mg Tab.sr.24h, 300 MG PO DAILY, TAB.SA 04/08/17 Amlodipine Besylate* (Amlodipine Besylate*) 10 Mg Tablet, 10 MG PO DAILY, #30 TAB 04/08/17 Sertraline Hcl* (Sertraline Hcl*) 100 Mg Tablet, 200 MG PO DAILY, #60 TAB 04/08/17 Pseudoephedrine Hcl* (Nasal Decongestant*) 30 Mg Tablet, 30 MG PO BID Y for CONGESTION, TAB 01/19/16 Trazodone Hcl* (Trazodone Hcl*) 100 Mg Tablet, 300 MG PO QHS, #30 TAB 01/19/16 Clonazepam* (Clonazepam*) 0.5 Mg Tablet, 0.5 MG PO QHS, TAB 01/19/16 Estrogen,Conj-Medroxyprogest Acet (Prempro) 0.3-1.5 Mg Tablet, 1 TAB PO DAILY, TAB 01/19/16 Omeprazole (Omeprazole) 20 Mg Tablet.dr, 20 MG PO AC BREAKFAST 04/26/11 Allergies Allergies: Coded Allergies: No Known Drug Allergies (Verified Allergy, Mild, 04/08/17) PMhx/Soc History of Surgery: Yes (left foot 1st digit sx) Anesthesia Reaction: No Hx Neurological Disorder: No Hx Respiratory Disorders: No Hx Cardiac Disorders: Yes (HTN,hyperlipidemia) Hx Psychiatric Problems: Yes (DEPRESSION) Hx Miscellaneous Medical Probl: Yes (OBESITY) Hx Alcohol Use: No Hx Substance Use: No Hx Tobacco Use: Yes Smoking Status: Current every day smoker Physical Exam Vitals Vital Signs Date Time Temp Pulse Resp B/P Pulse Ox O2 Delivery O2 Flow Rate FiO2 06/02/17 21:39 90 16 102/67 98 Room Air 06/02/17 20:46 98.0 109 28 114/96 100 Room Air 06/02/17 19:48 111 24 97 21 06/02/17 18:48 97.9 97 23 133/108 99 Physical Exam Const: [id number], well-nourished. In no acute distress. Head: Atraumatic, normocephalic Eyes: Normal Conjunctiva without injection. No purulent discharge. PERRL. EOMI ENT: Normal external ear. Ear canal without erythema. Tympanic membrane pearly weinberg without effusion or bulging. Nasal canal clear with normal turbinates. Moist oropharynx without tonsillar exudates. Non-erythematous pharynx. Uvula midline. No drooling. No trismus. Neck: Full range of motion. No meningismus. No cervical lymphadenopathy. Resp: Patient had difficulty inspiring and expiring as patient had a consistent dry cough. No wheezing, rhonchi, rales, or crackles. No stridor noted. No accessory muscle use. No retractions. Cardio: Regular rate and rhythm. No murmurs, rubs or gallops. Abd: Soft, non tender, non distended. Normal bowel sounds. No palpable masses. No rebound tenderness. No guarding. Skin: No petechiae or rashes Back: No midline tenderness. No CVA tenderness. Ext: No cyanosis, or edema. Neur: Awake and alert. Psych: Normal Mood and Affect Results 24 hrs Current Medications Medications (Trade) Dose Ordered Sig/Eve Route PRN Reason Start Time Stop Time Status Last Admin Dose Admin Albuterol (Proventil 0.5% (Neb)) 5 mg ONCE STAT INH 06/02/17 19:24 06/02/17 19:26 DC 06/02/17 19:47 Ipratropium [place] (Atrovent 0.02% (Neb)) 1 mg ONCE STAT INH 06/02/17 19:24 06/02/17 19:26 DC 06/02/17 19:47 Prednisone (Prednisone) 60 mg ONCE STAT PO 06/02/17 19:24 06/02/17 19:26 DC 06/02/17 20:21 Guaifenesin/ Codeine Phosphate (Robitussin Ac Liquid Cup) 10 ml ONCE ONCE PO 06/02/17 20:30 06/02/17 20:31 DC 06/02/17 20:14 Lorazepam (Ativan) 1 mg ONCE ONCE PO 06/02/17 21:00 06/02/17 21:01 DC 06/02/17 20:51 Phenol (Cepastat Lozenge) 1 lozenge ONCE ONCE MT 06/02/17 21:00 06/02/17 21:01 DC 06/02/17 20:52 Procedures/MDM This is a 52-year-old female patient with a past medical history of hypertension presents the ED complaining of a dry cough that has been occurring for 1 month. Patient is afebrile and nontoxic-appearing. Patient has normal vital signs. A chest x-ray was ordered to further evaluate patient. Chest x- ray showed no pneumonia, pneumothorax, pleural effusion. Patient was treated here in the ED with a breathing treatment consisting of 5 mg albuterol, 1 mg Atrovent, prednisone 60 mg, guaifenesin with codeine 10 mL, Cepatat lozenges with improvement of her symptoms. Patient was coughing consistently prior to receiving these medications. Patient is resting comfortably, speaking full sentences and verbalizing that she feels better. Since patient's cough was consistent and persistent and slightly consistent with a whooping cough, a pertussis nasopharyngeal swab test was performed in the ED. Pending results. Low suspicion for acute myocardial infarction, pneumothorax, pneumonia, cardiac tamponade, pulmonary embolism, pleural effusion, AAA, aortic dissection, Boerhaave's syndrome, cardiac dysrhythmias,meningitis, intracranial bleed, seizure, stroke, TIA or other emergent conditions. Discharge medications: Lozenges, Robitussin AC, prednisone, Zithromax Follow up with primary care physician in 1-2 days. Instructed patient to return to the ED sooner for any worsening symptoms. Patient's questions were answered. Patient understood and agreed with discharge plan. Patient discharged stable. Departure Diagnosis: Primary Impression: Cough Condition: Stable Patient Instructions: Pertussis (Whooping Cough): When to Go to Emergency, Cough, Chronic, Uncertain Cause, (Adult) Referrals: KATELYN BEY MD (PCP) [facility] YOU HAVE RECEIVED A MEDICAL SCREENING EXAM AND THE RESULTS INDICATE THAT YOU DO NOT HAVE A CONDITION THAT REQUIRES URGENT TREATMENT IN THE EMERGENCY DEPARTMENT. FURTHER EVALUATION AND TREATMENT OF YOUR CONDITION CAN WAIT UNTIL YOU ARE SEEN IN YOUR DOCTORS OFFICE WITHIN THE NEXT 1-2 DAYS. IT IS YOUR RESPONSIBILITY TO MAKE AN APPOINTMENT FOR FOLOW-UP CARE. IF YOU HAVE A PRIMARY DOCTOR --you should call your primary doctor and schedule an appointment IF YOU DO NOT HAVE A PRIMARY DOCTOR YOU CAN CALL OUR PHYSICIAN REFERRAL HOTLINE AT IF YOU CAN NOT AFFORD TO SEE A PHYSICIAN YOU CAN CHOSE FROM THE FOLLOWING [facility] [address] [facility] [address]. [facility] [address] [facility] [address] [facility] [address] [facility] [address] [facility]. [facility] [address] [facility]. [facility] YOU HAVE RECEIVED A MEDICAL SCREENING EXAM AND THE RESULTS INDICATE THAT YOU DO NOT HAVE A CONDITION THAT REQUIRES URGENT TREATMENT IN THE EMERGENCY DEPARTMENT. FURTHER EVALUATION AND TREATMENT OF YOUR CONDITION CAN WAIT UNTIL YOU ARE SEEN IN YOUR DOCTORS OFFICE WITHIN THE NEXT 1-2 DAYS. IT IS YOUR RESPONSIBILITY TO MAKE AN APPOINTMENT FOR FOLOW-UP CARE. IF YOU HAVE A PRIMARY DOCTOR --you should call your primary doctor and schedule and appointment IF YOU DO NOT HAVE A PRIMARY DOCTOR YOU CAN CALL OUR PHYSICIAN REFERRAL HOTLINE AT . IF YOU CAN NOT AFFORD TO SEE A PHYSICIAN YOU CAN CHOSE FROM THE FOLLOWING [facility]: [facility] [address] [place] [address] [facility] [address] [place] [address] [facility] [address] [place] [address] [facility] URGENT C[facility]/SPECIALTIES Additional Instructions: FOLLOW UP WITH YOUR PRIMARY CARE PHYSICIAN TOMORROW for further evaluation and treatment.Return to this facility if you are not improving as expected - fever , shortness of breath, nausea, vomiting, chest pain, wheezing, etc. VICTOR HUGO PERRY PA-C Jun 02, 2017 22:23
[2017-06-02 22:36] VITALS: BP 102/69; PULSE 88; RESP 22
== END 2017-06-02 22:37 | disposition home or self-care (01) ==
LOC: FTE 18:44 → E/R 22:37
DX: R05 Cough (principal); I10 Essential (primary) hypertension; E66.9 Obesity, unspecified; F17.210 Nicotine dependence, cigarettes, uncomplicated; Z68.41 Body mass index [BMI] 40.0-44.9, adult
CPT/HCPCS: 71010; 94640; 94644; J7512; Z7502; Z7610

== ENCOUNTER 2017-06-15 19:30 | Emergency (ER) | payer OTHER ==
[~2017-06-15] VITALS: Ht 160 cm; Wt 99.5 kg
[~2017-06-15 19:30] MED LIST changes: +AZIT250T94 PO; +CEPASTAT MT; -CLON0.5T4 PO; -HYDR-3498 PO; -IBUP-1542 PO; -NAPR-260 PO; +PRED20TA PO; -TRAM50TA2 PO; +UDROBAC PO
[2017-06-15 19:35] VITALS: Ht 160 cm; Wt 99.5 kg
[2017-06-15] MEDS ORDERED: PROCHLORPERAZINE 10 MG INJ IV STA (21:27)
[2017-06-15] MEDS ORDERED: HYDROmorphONE 1 MG/ML SYG IV STA (21:27)
[2017-06-15] MEDS ORDERED: DIPHENHYDRAMINE 50 MG INJ IV STA (21:27)
--- NOTE | 2017-06-15 22:34 | RADRPT ---
PROCEDURE: CT HEAD WITHOUT CONTRAST: CLINICAL INDICATION: 52 years of age female, headache . COMPARISON: None TECHNIQUE: CT of the head was performed without IV contrast. Dose information: The estimated radiation dose (CTDIvol mGy) for each series in this exam is 42.8 . The estimated cumulative dose (DLP mGy-cm) is 630 . FINDINGS: Parenchyma: No acute hemorrhage, infarction, or mass. Ventricles and extra-axial spaces: Appropriate for age. Visualized paranasal sinuses: Clear. Mastoid air cells: Clear. Bones: No focal abnormality. Additional comment: None. IMPRESSION: Normal CT of the head for age. RPTAT: HCTS Physician Mike Date Time Electronically viewed and signed by Physician Mike on 06/15/2017 22:33 /
[2017-06-15] MEDS ORDERED: AZIT250T94 PO (22:59)
[2017-06-15] MEDS ORDERED: PRED20TA PO (22:59)
--- NOTE | 2017-06-15 23:05 | ERD ---
ER Documentation Chief Complaint Date/Time DATE: 06/15/17 TIME: 22:59 Chief Complaint Cough on and off x2 weeks. Diagnosed with pertussis per health department HPI This is a 52-year-old female who has had a cough for over a month. The patient was seen here on June 02 and a pertussis swab was done and sent off and came back positive. The health department was notified in the health department called the patient and told the patient to come to the emergency room. Patient is says she has had the same cough for over a month and is also complaining of 6 days of a right retro-orbital headache that is throbbing. She has photophobia but no phonophobia and the headache is worse with position change. No blurry vision speech change no focal neurological complaints such as numbness or weakness. She does not have a history of headaches. The patient lives in an apartment with 4 other people. None of them are sick. ROS All systems reviewed and are negative except as per history of present illness. Medications Home Meds Active Scripts Prednisone* (Prednisone*) 20 Mg Tab, 60 MG PO DAILY for 5 Days, TAB Prov:CECILLE METZGER DO 06/15/17 Azithromycin* (Zithromax*) 250 Mg Tablet, 250 MG PO .ZPACK DIRECTED, #6 TAB TAKE 500 MG (2 TABS) THE FIRST DAY THEN 250 MG (1 TAB) DAYS 2-5 Prov:CECILLE METZGER DO 06/15/17 Guaifenesin-Codeine Phosphate* (Robitussin* AC) 5 Ml Syrup, 10 ML PO QHS Y for COUGH, #90 ML Prov:VICTOR HUGO PERRY PA-C 06/02/17 Prednisone* (Prednisone*) 20 Mg Tab, 40 MG PO DAILY for 4 Days, TAB Prov:VICTOR HUGO PERRY PA-C 06/02/17 Throat Lozenges* (Cepastat*) 9 Julia Lozenge, 1 LOZEN[place] MT Q3H Y, #14 LOZENGE Prov:VICTOR HUGO PERRY PA-C 06/02/17 Azithromycin* (Zithromax*) 250 Mg Tablet, 250 MG PO .ZPACK DIRECTED, #6 TAB TAKE 500 MG (2 TABS) THE FIRST DAY THEN 250 MG (1 TAB) DAYS 2-5 Prov:VICTOR HUGO PERRY PA-C 06/02/17 Cetirizine Hcl* (Zyrtec*) 10 Mg Capsule, 10 MG PO DAILY, #10 TAB.CHEW Prov:FAMILIA PARKS MD 05/16/16 Reported Medications Bupropion Hcl* (Bupropion XL*) 300 Mg Tab.sr.24h, 300 MG PO DAILY, TAB.SA 04/08/17 Amlodipine Besylate* (Amlodipine Besylate*) 10 Mg Tablet, 10 MG PO DAILY, #30 TAB 04/08/17 Sertraline Hcl* (Sertraline Hcl*) 100 Mg Tablet, 200 MG PO DAILY, #60 TAB 04/08/17 Pseudoephedrine Hcl* (Nasal Decongestant*) 30 Mg Tablet, 30 MG PO BID Y for CONGESTION, TAB 01/19/16 Trazodone Hcl* (Trazodone Hcl*) 100 Mg Tablet, 300 MG PO QHS, #30 TAB 01/19/16 Estrogen,Conj-Medroxyprogest Acet (Prempro) 0.3-1.5 Mg Tablet, 1 TAB PO DAILY, TAB 01/19/16 Omeprazole (Omeprazole) 20 Mg Tablet.dr, 20 MG PO AC BREAKFAST 04/26/11 Allergies Allergies: Coded Allergies: No Known Drug Allergies (Verified Allergy, Mild, 06/15/17) PMhx/Soc Medical and Surgical Hx: pt denies Medical Hx, pt denies Surgical Hx History of Surgery: Yes (left foot 1st digit sx) Anesthesia Reaction: No Hx Neurological Disorder: No Hx Respiratory Disorders: No Hx Cardiac Disorders: Yes (HTN,hyperlipidemia) Hx Psychiatric Problems: No Hx Miscellaneous Medical Probl: No Hx Alcohol Use: No Hx Substance Use: No Hx Tobacco Use: No Smoking Status: Never smoker FmHx Family History: No coronary disease Physical Exam Vitals Vital Signs Date Time Temp Pulse Resp B/P Pulse Ox O2 Delivery O2 Flow Rate FiO2 06/15/17 22:50 98.2 82 18 120/70 99 Room Air 06/15/17 21:15 98.2 24 115/67 97 Room Air 06/15/17 19:35 98.2 82 24 101/58 97 Physical Exam Const: Well-developed, well-nourished Head: Atraumatic, normocephalic Eyes: Normal Conjunctiva, PERRLA, EOMI, normal sclera, no nystagmus ENT: Normal External Ears, Nose and Mouth, moist mucus membranes. Neck: Full range of motion. No meningismus, no lymphadenopathy. Resp: Clear to auscultation bilaterally, no wheezing, rhonchi, rales Cardio: Regular rate and rhythm, no murmurs, S1 S2 present Abd: Soft, non tender x 4, non distended. Normal bowel sounds, no guarding or rebound, no pulsitile abdominal masses or bruits Skin: No petechiae or rashes, no ecchymosis , no maculopapular rash Back: No midline or flank tenderness Ext: No cyanosis, or edema, FROM x 4, normal inspection, neurovascularly intact x 4 Neur: Awake and alert, STR 5/5 x 4, sensation intact x 4, no focal findings, cerebellum intact Psych: Normal Mood and Affect Results 24 hrs Current Medications Medications (Trade) Dose Ordered Sig/Eve Route PRN Reason Start Time Stop Time Status Last Admin Dose Admin Prochlorperazine (Compazine Inj) 10 mg ONCE STAT IV 06/15/17 21:27 06/15/17 21:28 DC 06/15/17 21:41 Hydromorphone HCl (Dilaudid) 1 mg ONCE STAT IV 06/15/17 21:27 06/15/17 21:28 DC 06/15/17 21:37 Diphenhydramine HCl (Benadryl) 25 mg ONCE STAT IV 06/15/17 21:27 06/15/17 21:28 DC 06/15/17 21:37 Procedures/MDM PROCEDURE: CT HEAD WITHOUT CONTRAST: CLINICAL INDICATION: 52 years of age female, headache . COMPARISON: None TECHNIQUE: CT of the head was performed without IV contrast. Dose information: The estimated radiation dose (CTDIvol mGy) for each series in this exam is 42.8 . The estimated cumulative dose (DLP mGy-cm) is 630 . FINDINGS: Parenchyma: No acute hemorrhage, infarction, or mass. Ventricles and extra-axial spaces: Appropriate for age. Visualized paranasal sinuses: Clear. Mastoid air cells: Clear. Bones: No focal abnormality. Additional comment: None. IMPRESSION: Normal CT of the head for age. RPTAT: HCTS Dar Peoples Physician Date Time Electronically viewed and signed by Dar Peoples Physician on 06/15/2017 22: 33 CS/ CC: CECILLE METZGER DO Patient received Benadryl, Dilaudid, Compazine for headache or headache is not gone. History is consistent with a migraine headache. No signs of stroke or other intracranial pathology on CAT scan. .. Patient's purtussis be treated with a Z-Avinash. She has had a cough for longer than 3 weeks therefore this usually takes its own course 80-90% of people will resolve on their own. This patient is however continuing to cough therefore I will treat her with a Z- Avinash and some prednisone. Advised her to have the other family members at home treated with Z-Avinash as well Departure Diagnosis: Primary Impression: Whooping cough due to Bordetella pertussis (B. pertussis) Additional Impression: Migraine Migraine type: unspecified Status migrainosus presence: without status migrainosus Intractability: not intractable Qualified Code: G43.909 - Migraine without status migrainosus, not intractable, unspecified migraine type Condition: Stable Patient Instructions: Understanding Whooping Cough (Pertussis), Headache, Migraine (Classical) CECILLE METZGER DO Jun 15, 2017 23:05
[2017-06-15] MEDS ORDERED: HYDR-902 PO (23:06)
[2017-06-15 23:52] VITALS: BP 120/70; PULSE 81; RESP 18; TEMP 98.1
[2017-06-15] MEDS ORDERED: ATOR10TA65 PO (23:52)
== END 2017-06-15 23:53 | disposition home or self-care (01) ==
LOC: FTE 19:30 → E/R 23:53
DX: A37.00 Whooping cough due to Bordetella pertussis without pneumonia (principal); I10 Essential (primary) hypertension; G43.909 Migraine, unspecified, not intractable, without status migrainosus
CPT/HCPCS: 70450; J0780; J1170; J1200; 96374; 96375

== ENCOUNTER 2017-06-20 19:13 | Emergency (ER) | payer OTHER ==
[~2017-06-20] VITALS: Ht 162.6 cm; Wt 99.5 kg
[~2017-06-20 19:13] MED LIST changes: +ATOR10TA65 PO; +HYDR-902 PO; -[UNRECOGNIZED DRUG - CODE] PO
[2017-06-20 19:18] VITALS: Ht 162.6 cm; Wt 99.5 kg
--- NOTE | 2017-06-20 20:15 | ERD ---
ER Documentation Chief Complaint Date/Time DATE: 06/20/17 TIME: 20:12 Chief Complaint cough x 6 weeks HPI Patient is a 52-year-old female who presents to the ED with ongoing cough 6 weeks. Patient was diagnosed with pertussis on 06/02/17. The health department contacted her regarding this issue. Patient came to the ER on 06/15/17 and was given prednisone, azithromycin. She states that she finished a course of antibiotics in the medication and went to her primary care provider 4 days ago and was requesting cough medicine. However she states that her primary care provider did not give her any medication and she is here today for medication for her cough. She states that the cough is similar to what she has had for the last weeks weeks. She denies leg pain or leg swelling. She denies chest pain or shortness of breath. She states that the cough is worse at night. She denies fever or chills, hemoptysis or night sweats. No other complaints. ROS All systems reviewed and are negative except as per history of present illness. Medications Home Meds Active Scripts Hydrocodone/Acetaminophen ([place] 5-325 Tablet) 1 Each Tablet, 1 TAB PO Q6H Y for PAIN, #7 TAB Prov:CESAR BRANTLEY PA-C 06/20/17 Benzonatate* (Tessalon Perle*) 100 Mg Capsule, 100 MG PO Q8H Y for COUGH for 14 Days, CAP Prov:CESAR BRANTLEY PA-C 06/20/17 Guaifenesin-Dextromethorphan* (Robitussin* DM) 100MG/10MG/5ML Syrup, 5 ML PO Q4H Y for COUGH for 14 Days, ML Prov:CESAR BRANTLEY PA-C 06/20/17 Menthol (COUGH DROPS) 2.7 Mg Lozenge, 2.7 MG MM BID for 14 Days, LOZENGE Prov:CESAR BRANTLEY PA-C 06/20/17 Hydrocodone/Acetaminophen ([place] 10-325 Tablet) 1 Each Tablet, 1 TAB PO Q6H Y for PAIN, #20 TAB Prov:CECILLE METZGER DO 06/15/17 Prednisone* (Prednisone*) 20 Mg Tab, 60 MG PO DAILY for 5 Days, TAB Prov:CECILLE METZGER AMicky MCCANN 06/15/17 Azithromycin* (Zithromax*) 250 Mg Tablet, 250 MG PO .ZPACK DIRECTED, #6 TAB TAKE 500 MG (2 TABS) THE FIRST DAY THEN 250 MG (1 TAB) DAYS 2-5 Prov:CECILLE METZGERMicky DO 06/15/17 Guaifenesin-Codeine Phosphate* (Robitussin* AC) 5 Ml Syrup, 10 ML PO QHS Y for COUGH, #90 ML Prov:VICTOR HUGO PERRY PA-C 06/02/17 Throat Lozenges* (Cepastat*) 9 Julia Lozenge, 1 LOZENGE MT Q3H Y, #14 LOZENGE Prov:VICTOR HUGO PERRY PA-C 06/02/17 Azithromycin* (Zithromax*) 250 Mg Tablet, 250 MG PO .ZPACK DIRECTED, #6 TAB TAKE 500 MG (2 TABS) THE FIRST DAY THEN 250 MG (1 TAB) DAYS 2-5 Prov:VICTOR HUGO PERRY PA-C 06/02/17 Cetirizine Hcl* (Zyrtec*) 10 Mg Capsule, 10 MG PO DAILY, #10 TAB.CHEW Prov:FAMILIA PARKS MD 05/16/16 Reported Medications Atorvastatin Calcium (Atorvastatin Calcium) 10 Mg Tablet, 10 MG PO QHS, #30 TAB 06/15/17 Bupropion Hcl* (Bupropion XL*) 300 Mg Tab.sr.24h, 300 MG PO DAILY, TAB.SA 04/08/17 Amlodipine Besylate* (Amlodipine Besylate*) 10 Mg Tablet, 10 MG PO DAILY, #30 TAB 04/08/17 Sertraline Hcl* (Sertraline Hcl*) 100 Mg Tablet, 200 MG PO DAILY, #60 TAB 04/08/17 Trazodone Hcl* (Trazodone Hcl*) 100 Mg Tablet, 300 MG PO QHS, #30 TAB 01/19/16 Estrogen,Conj-Medroxyprogest Acet (Prempro) 0.3-1.5 Mg Tablet, 1 TAB PO DAILY, TAB 01/19/16 Omeprazole (Omeprazole) 20 Mg Tablet.dr, 20 MG PO AC BREAKFAST 04/26/11 Discontinued Reported Medications Pseudoephedrine Hcl* (Nasal Decongestant*) 30 Mg Tablet, 30 MG PO BID Y for CONGESTION, TAB 01/19/16 Discontinued Scripts Prednisone* (Prednisone*) 20 Mg Tab, 40 MG PO DAILY for 4 Days, TAB Prov:VICTOR HUGO PERRY Neeraj REECE 06/02/17 Allergies Allergies: Coded Allergies: No Known Drug Allergies (Unverified Allergy, Unknown, 06/20/17) PMhx/Soc History of Surgery: Yes (left foot 1st digit sx) Anesthesia Reaction: No Hx Neurological Disorder: No Hx Respiratory Disorders: No Hx Cardiac Disorders: Yes (HTN,hyperlipidemia) Hx Psychiatric Problems: No Hx Miscellaneous Medical Probl: No Hx Alcohol Use: No Hx Substance Use: No Hx Tobacco Use: No Smoking Status: Never smoker FmHx Family History: No coronary disease, No diabetes, No other Physical Exam Vitals Vital Signs Date Time Temp Pulse Resp B/P Pulse Ox O2 Delivery O2 Flow Rate FiO2 06/20/17 20:48 91 30 99 21 06/20/17 19:18 98.1 81 20 136/95 97 Physical Exam GENERAL: Well-developed, well-nourished female. Appears in no acute distress. HEAD: Normocephalic, atraumatic. EYES: Pupils are equally reactive bilaterally. EOMs grossly intact. No conjunctival erythema. ENT: Moist mucous membranes. No uvula deviation. No kissing tonsils. No exudates. NECK: Supple. No lymphadenopathy or thyromegaly. No meningismus. negative kernig. negative brudinski. LUNG: Clear to auscultation bilaterally. No rhonchi, wheezing, rales or coarse breath sounds. HEART: Regular rate and rhythm. No murmurs, rubs or gallops. Extremities: Equal pulses bilaterally. No peripheral clubbing, cyanosis or edema. No unilateral leg swelling. NEUROLOGIC: Alert and oriented. Moving all four extremities. 5/5 strength in all extremities. Normal speech. Steady gait. SKIN: Normal color. Warm and dry. No rashes or lesions. Capillary refill < 2 seconds Results 24 hrs Current Medications Medications (Trade) Dose Ordered Sig/Vee Route PRN Reason Start Time Stop Time Status Last Admin Dose Admin Acetaminophen/ Hydrocodone Bitart ([place] (5/325)) 1 tab ONCE ONCE PO 06/20/17 20:30 06/20/17 20:31 DC 06/20/17 20:10 Albuterol (Proventil 0.083% (Neb)) 5 mg ONCE STAT HHN 06/20/17 20:35 06/20/17 20:36 DC 06/20/17 20:47 Ipratropium [place] (Atrovent 0.02% (Neb)) 0.5 mg ONCE ONCE HHN 06/20/17 21:00 06/20/17 21:01 DC 06/20/17 20:46 Phenol (Cepastat Lozenge) 1 lozenge ONCE ONCE UT 06/20/17 21:00 06/20/17 21:01 DC 06/20/17 21:36 Procedures/MDM ER COURSE: I kept the patient and/or family informed of laboratory and diagnostic imaging results throughout the emergency room course. IMAGING STUDIES [place] [address] Radiology Main Line: [phone] DIAGNOSTIC IMAGING REPORT Patient: BERNY HATFIELD : 1965 Age: 52 Sex: F MR #: [id number] DOS: 06/20/172004 Ordering MD: CESAR BRANTLEY PA-C Location: [facility] Room/Bed: PROCEDURE: XR Chest. CLINICAL INDICATION: Cough. TECHNIQUE: Single frontal view of the chest in apical lordotic position. COMPARISON: 01/19/2016. FINDINGS: The cardiomediastinal silhouette is within normal limits. The lungs are clear. No signs of pleural fluid or pneumothorax are seen. The osseous structures and soft tissues are unremarkable. IMPRESSION: No evidence for active cardiopulmonary disease. RPTAT: [facility] Physician Steph Date Time Electronically viewed and signed by Physician Steph on 06/20/2017 23:01 RS/ CC: CESAR BRANTLEY PA-C MEDICAL DECISION MAKING: This is a 52-year-old female who presents with cough 6 weeks. Vital signs were reviewed. Patient is afebrile. Patient is not hypoxic. She is not toxic or ill- appearing. I consulted with my supervising physician Dr. Worthy who agrees with my medical decision making and discharge plans. Patient will be giving [place] and a chest x-ray in the ED. Her chest x-rays are by radiologist unremarkable. Patient will be sent home with Nicholas Camacho and to follow-up with her primary care provider to be referred to a fashion marketer. No further workup will be done in the ED today. Patient has normal vital signs. Patient does not have leg pain or leg swelling or shortness of breath and I have low suspicion for PE or DVT. Patient was given a breathing treatment in the ED, tolerated well and had improvement in symptoms. Low suspicion for pneumonia, PE , pneumothorax, ACS, epiglottitis, obstruction, TB, pertussis, meningitis, sepsis. Low suspicion for ACS, PE, AAA, dissection, DVT. DISCHARGE: At this time, patient is stable for discharge and outpatient management with no new complaints during the ER course. Patient was sent home with Robert-Ty EMERSON. Patient will be discharged home with instructions to recheck for new or worsening symptoms such as fever, nausea, weakness, LOC and to follow up with primary care in the next 1-2 days. Patient was advised to return to the ER for any new or worsening symptoms. Plan was discussed and patient and/or family understands and agrees. Home instructions were given. Departure Diagnosis: Primary Impression: Cough Condition: Stable CESAR BRANTLEY PA-C Jun 20, 2017 20:15
[2017-06-20] MEDS ORDERED: HYDROCODONE/APAP (5/325) TAB PO ONE (20:30)
[2017-06-20] MEDS ORDERED: ALBUTEROL 0.083% (NEB) 2.5 MG/3 ML AMP HHN STA (20:35)
[2017-06-20] MEDS ORDERED: CEPASTAT LOZENGE MT ONE (21:00)
[2017-06-20] MEDS ORDERED: IPRATROPIUM (NEB) 0.5 MG/2.5 ML AMP HHN ONE (21:00)
--- NOTE | 2017-06-20 23:01 | RADRPT ---
PROCEDURE: XR Chest. CLINICAL INDICATION: Cough. TECHNIQUE: Single frontal view of the chest in apical lordotic position. COMPARISON: 01/19/2016. FINDINGS: The cardiomediastinal silhouette is within normal limits. The lungs are clear. No signs of pleural f luid or pneumothorax are seen. The osseous structures and soft tissues are unremarkable. IMPRESSION: No evidence for active cardiopulmonary disease. RPTAT: [facility] Physician Steph Date Time Electronically viewed and signed by Helena Gonzalez Physician on 06/20/2017 23:01 RS/
[2017-06-20] MEDS ORDERED: HYDR-906 PO (23:13)
[2017-06-20] MEDS ORDERED: UDROBDM PO (23:13)
[2017-06-20] MEDS ORDERED: BENZ100C70 PO (23:13)
[2017-06-20] MEDS ORDERED: MENT2.7L MM (23:13)
[2017-06-20 23:30] VITALS: BP 108/57; PULSE 77; RESP 20; TEMP 98.3
== END 2017-06-20 23:20 | disposition home or self-care (01) ==
LOC: FTE 19:13
DX: R05 Cough (principal); I10 Essential (primary) hypertension
CPT/HCPCS: 71010; 94664; Z7502; Z7610

== ENCOUNTER 2017-07-06 18:23 | Emergency (ER) | payer OTHER ==
[~2017-07-06] VITALS: Ht 152.4 cm; Wt 98.0 kg
[~2017-07-06 18:23] MED LIST changes: +BENZ100C70 PO; +HYDR-906 PO; +MENT2.7L MM; +UDROBDM PO
[2017-07-06 18:29] VITALS: Ht 152.4 cm; Wt 98.0 kg
[2017-07-06] MEDS ORDERED: DIPHENHYDRAMINE 50 MG INJ IV STA (23:28)
[2017-07-06] MEDS ORDERED: PROCHLORPERAZINE 10 MG INJ IV STA (23:28)
[2017-07-06] MEDS ORDERED: HYDROmorphONE 1 MG/ML SYG IV STA (23:28)
[2017-07-06] MEDS ORDERED: HYDR-902 PO (23:53)
--- NOTE | 2017-07-06 23:55 | ERD ---
ER Documentation Chief Complaint Date/Time DATE: 07/06/17 TIME: 23:53 Chief Complaint headache x 4 days, right side of mouth abscess x 15 days ago, on antibiotic HPI This a 52-year-old female with a history of migraine headaches complaining of 4 days of a typical migraine located in the right retro-orbital region with throbbing pain with photophobia phonophobia and worse with movement. She has no nausea vomiting no focal neurological complaints no preceding aura. The patient is being treated currently for dental pain/abscess. She has no swelling of the face. No fever stiff neck. ROS All systems reviewed and are negative except as per history of present illness. Medications Home Meds Active Scripts Hydrocodone/Acetaminophen ([place] 10-325 Tablet) 1 Each Tablet, 1 TAB PO Q6H Y for PAIN, #20 TAB Prov:CECILLE METZGER DO 07/06/17 Hydrocodone/Acetaminophen ([place] 5-325 Tablet) 1 Each Tablet, 1 TAB PO Q6H Y for PAIN, #7 TAB Prov:CESAR BRANTLEY PA-C 06/20/17 Benzonatate* (Tessalon Perle*) 100 Mg Capsule, 100 MG PO Q8H Y for COUGH for 14 Days, CAP Prov:CESAR BRANTLEY PA-C 06/20/17 Guaifenesin-Dextromethorphan* (Robitussin* DM) 100MG/10MG/5ML Syrup, 5 ML PO Q4H Y for COUGH for 14 Days, ML Prov:CESAR BRANTLEY PA-C 06/20/17 Menthol (COUGH DROPS) 2.7 Mg Lozenge, 2.7 MG MM BID for 14 Days, LOZENGE Prov:CESAR BRANTLEY-C 06/20/17 Hydrocodone/Acetaminophen ([place] 10-325 Tablet) 1 Each Tablet, 1 TAB PO Q6H Y for PAIN, #20 TAB Prov:CECILLE METZGER DO 06/15/17 Prednisone* (Prednisone*) 20 Mg Tab, 60 MG PO DAILY for 5 Days, TAB Prov:CECILLE METZGER AMicky DO 06/15/17 Azithromycin* (Zithromax*) 250 Mg Tablet, 250 MG PO .ZPACK DIRECTED, #6 TAB TAKE 500 MG (2 TABS) THE FIRST DAY THEN 250 MG (1 TAB) DAYS 2-5 Prov:CECILLE METZGER DO 06/15/17 Guaifenesin-Codeine Phosphate* (Robitussin* AC) 5 Ml Syrup, 10 ML PO QHS Y for COUGH, #90 ML Prov:VICTOR HUGO PERRY PA-C 06/02/17 Throat Lozenges* (Cepastat*) 9 Julia Lozenge, 1 LOZENGE MT Q3H Y, #14 LOZENGE Prov:VICTOR HUGO PERRY PA-C 06/02/17 Azithromycin* (Zithromax*) 250 Mg Tablet, 250 MG PO .MillyPACK DIRECTED, #6 TAB TAKE 500 MG (2 TABS) THE FIRST DAY THEN 250 MG (1 TAB) DAYS 2-5 Prov:VICTOR HUGO PERRY PA-C 06/02/17 Cetirizine Hcl* (Zyrtec*) 10 Mg Capsule, 10 MG PO DAILY, #10 TAB.CHEW Prov:FAMILIA PARKS MD 05/16/16 Reported Medications Atorvastatin Calcium (Atorvastatin Calcium) 10 Mg Tablet, 10 MG PO QHS, #30 TAB 06/15/17 Bupropion Hcl* (Bupropion XL*) 300 Mg Tab.sr.24h, 300 MG PO DAILY, TAB.SA 04/08/17 Amlodipine Besylate* (Amlodipine Besylate*) 10 Mg Tablet, 10 MG PO DAILY, #30 TAB 04/08/17 Sertraline Hcl* (Sertraline Hcl*) 100 Mg Tablet, 200 MG PO DAILY, #60 TAB 04/08/17 Trazodone Hcl* (Trazodone Hcl*) 100 Mg Tablet, 300 MG PO QHS, #30 TAB 01/19/16 Estrogen,Conj-Medroxyprogest Acet (Prempro) 0.3-1.5 Mg Tablet, 1 TAB PO DAILY, TAB 01/19/16 Omeprazole (Omeprazole) 20 Mg Tablet.dr, 20 MG PO AC BREAKFAST 04/26/11 Allergies Allergies: Coded Allergies: No Known Drug Allergies (Unverified Allergy, Unknown, 06/20/17) PMhx/Soc History of Surgery: Yes (left foot 1st digit sx) Anesthesia Reaction: No Hx Neurological Disorder: No Hx Respiratory Disorders: No Hx Cardiac Disorders: Yes (HTN,hyperlipidemia) Hx Psychiatric Problems: No Hx Miscellaneous Medical Probl: No Hx Alcohol Use: No Hx Substance Use: No Hx Tobacco Use: No Smoking Status: Never smoker FmHx Family History: No coronary disease Physical Exam Vitals Vital Signs Date Time Temp Pulse Resp B/P Pulse Ox O2 Delivery O2 Flow Rate FiO2 07/06/17 18:29 98.1 86 18 194/101 98 Physical Exam Const: Well-developed, well-nourished Head: Atraumatic, normocephalic Eyes: Normal Conjunctiva, PERRLA, EOMI, normal sclera, no nystagmus ENT: Normal External Ears, Nose and Mouth, moist mucus membranes. Neck: Full range of motion. No meningismus, no lymphadenopathy. Resp: Clear to auscultation bilaterally, no wheezing, rhonchi, rales Cardio: Regular rate and rhythm, no murmurs, S1 S2 present Abd: Soft, non tender x 4, non distended. Normal bowel sounds, no guarding or rebound, no pulsitile abdominal masses or bruits Skin: No petechiae or rashes, no ecchymosis , no maculopapular rash Back: No midline or flank tenderness Ext: No cyanosis, or edema, FROM x 4, normal inspection, neurovascularly intact x 4 Neur: Awake and alert, STR 5/5 x 4, sensation intact x 4, no focal findings, cerebellum intact Psych: Normal Mood and Affect Results 24 hrs Current Medications Medications (Trade) Dose Ordered Sig/Eve Route PRN Reason Start Time Stop Time Status Last Admin Dose Admin Prochlorperazine (Compazine Inj) 10 mg ONCE STAT IV 07/06/17 23:28 07/06/17 23:29 DC Hydromorphone HCl (Dilaudid) 1 mg ONCE STAT IV 07/06/17 23:28 07/06/17 23:29 DC Diphenhydramine HCl (Benadryl) 25 mg ONCE STAT IV 07/06/17 23:28 07/06/17 23:29 DC Procedures/MDM After medication the patient's pain is resolved. This is a typical migraine for her and there are no new symptoms that would warrant CT scan of the workup Departure Diagnosis: Primary Impression: Migraine Migraine type: unspecified Status migrainosus presence: without status migrainosus Intractability: not intractable Qualified Code: G43.909 - Migraine without status migrainosus, not intractable, unspecified migraine type Condition: Stable Patient Instructions: Headache, Migraine (Classical) CECILLE METZGER DO Jul 06, 2017 23:55
[2017-07-07 00:57] VITALS: BP 136/76; PULSE 67; RESP 17
== END 2017-07-07 00:59 | disposition home or self-care (01) ==
LOC: E/R 18:23
DX: G43.909 Migraine, unspecified, not intractable, without status migrainosus (principal); I10 Essential (primary) hypertension; R40.2142 Coma scale, eyes open, spontaneous, at arrival to emergency department; R40.2252 Coma scale, best verbal response, oriented, at arrival to emergency department; R40.2362 Coma scale, best motor response, obeys commands, at arrival to emergency department
CPT/HCPCS: 96374; 96375; J0780; J1170; J1200; Z7502

== ENCOUNTER 2017-08-22 16:56 | Emergency (ER) | payer SELFPAY ==
[~2017-08-22] VITALS: Ht 157.5 cm; Wt 80.0 kg
[2017-08-22 17:04] VITALS: Ht 157.5 cm; Wt 80.0 kg
== END 2017-08-22 21:13 | disposition left against medical advice (07) ==
LOC: FTE 16:56
DX: Z53.21 Procedure and treatment not carried out due to patient leaving prior to being seen by health care provider (principal)

== ENCOUNTER 2017-09-16 17:25 | Emergency (ER) | payer OTHER ==
[~2017-09-16] VITALS: Ht 152.4 cm; Wt 98.1 kg
[2017-09-16 17:27] VITALS: Ht 152.4 cm; Wt 98.1 kg
[2017-09-16] MEDS ORDERED: LORAZEPAM 2 MG INJ IM ONE (18:30)
[2017-09-16 18:32] LABS: BASOPHIL # 0.1 10^3/ul (0.0-0.1); BASOPHILS % 0.5 % (0.0-2.0); EOSINOPHILS # 0.2 10^3/ul (0.0-0.5); EOSINOPHILS % 1.4 % (0.0-7.0); HEMATOCRIT 43.3 % (37.0-47.0); HEMOGLOBIN 14.5 g/dl (12.0-16.0); LYMPHOCYTES # 3.8 10^3/ul (0.8-2.9); LYMPHOCYTES % 28.5 % (15.0-51.0); MEAN CORPUSCULAR HEMOGLOBIN 30.2 pg (29.0-33.0); MEAN CORPUSCULAR HGB CONC 33.5 g/dl (32.0-37.0); MEAN CORPUSCULAR VOLUME 90.2 fl (82.0-101.0); MEAN PLATELET VOLUME 10.7 fl (7.4-10.4); MONOCYTES % 7.7 % (0.0-11.0); NEUTROPHIL # 8.2 10^3/ul (1.6-7.5); NEUTROPHILS % 61.7 % (39.0-77.0); PLATELET COUNT 317 10^3/UL (140-415); WHITE BLOOD COUNT 13.3 10^3/ul (4.8-10.8)
[2017-09-16 18:52] LABS: CALCIUM 9.9 mg/dl (8.4-10.2); CREATININE 0.71 mg/dl (0.44-1.00); POTASSIUM 3.8 mmol/L (3.5-5.1)
[2017-09-16 18:53] LABS: ALBUMIN 4.9 g/dl (3.3-4.9); ALBUMIN/GLOBULIN RATIO 1.44; BILIRUBIN,INDIRECT 0.4 mg/dl (0-1.1); BILIRUBIN,TOTAL 0.4 mg/dl (0.2-1.3); TOTAL PROTEIN 8.3 g/dl (6.1-8.1)
[2017-09-16] MEDS ORDERED: KETOROLAC 60 MG INJ IM STA (19:16)
[2017-09-16] MEDS ORDERED: DIPHENHYDRAMINE 50 MG INJ IM ONE (19:30)
[2017-09-16] MEDS ORDERED: TRAM50TA2 PO (19:34)
--- NOTE | 2017-09-16 19:44 | ERD ---
ER Documentation Chief Complaint Chief Complaint SWEATING EVERY DAY, BACK PAIN FOR LONG TIME, ANXIETY; RESTLESS. RAMEZ Jeronimo is a 52-year-old female with a past medical history of hypertension, anxiety, panic attacks, depression and back pain who presents to the ED with back pain, panic attack and sweating. She states that the swelling has been going on for the last week. She has gotten these symptoms in the past. She also complains of feeling anxious and panic attack. She does take medications on a daily basis. Patient takes trazodone, bupropion, meloxicam, sertraline, quetapine. States that she did not run out of her medications and took all her medications this morning. Patient has had a history of withdrawal and has ran out of her medications. She does have follow-up appointment with her psychiatrist and has a therapy session coming up. Denies chest pain, cough or shortness of breath. Denies suicidal or homicidal ideations. Patient also complains of back pain. This has been going on for the last 6 months. She denies seeing that this pain is different than what she has experienced. She does not take any pain medications for her symptoms. She does have follow-up with her primary care who is giving her referral to physical therapy. She is waiting on the referral. She denies bowel or bladder incontinence. Denies new trauma or onset new falls. Denies radiation of pain down her legs. Denies weakness, numbness or tingling. No headache or dizziness. No other complaints. ROS All systems reviewed and are negative except as per history of present illness. Medications Home Meds Active Scripts Tramadol HCl (Tramadol HCl) 50 Mg Tablet, 50 MG PO Q4 Y for PAIN, #10 TAB Prov:CESAR BRANTLEY PA-C 09/16/17 Hydrocodone/Acetaminophen (Custer 10-325 Tablet) 1 Each Tablet, 1 TAB PO Q6H Y for PAIN, #20 TAB Prov:CECILLE METZGER DO 07/06/17 Hydrocodone/Acetaminophen ([place] 5-325 Tablet) 1 Each Tablet, 1 TAB PO Q6H Y for PAIN, #7 TAB Prov:CESAR BRANTLEY PA-C 06/20/17 Benzonatate* (Tessalon Perle*) 100 Mg Capsule, 100 MG PO Q8H Y for COUGH for 14 Days, CAP Prov:CESAR BRANTLEY PA-C 06/20/17 Guaifenesin-Dextromethorphan* (Robitussin* DM) 100MG/10MG/5ML Syrup, 5 ML PO Q4H Y for COUGH for 14 Days, ML Prov:CESAR BRANTLEY PA-C 06/20/17 Menthol (COUGH DROPS) 2.7 Mg Lozenge, 2.7 MG MM BID for 14 Days, LOZENGE Prov:CESAR BRANTLEY PA-C 06/20/17 Hydrocodone/Acetaminophen ([place]uster 10-325 Tablet) 1 Each Tablet, 1 TAB PO Q6H Y for PAIN, #20 TAB Prov:CECILLE METZGER DO 06/15/17 Prednisone* (Prednisone*) 20 Mg Tab, 60 MG PO DAILY for 5 Days, TAB Prov:ERINOSNEGARSTOLOS AMicky DO 06/15/17 Azithromycin* (Zithromax*) 250 Mg Tablet, 250 MG PO .ZPACK DIRECTED, #6 TAB TAKE 500 MG (2 TABS) THE FIRST DAY THEN 250 MG (1 TAB) DAYS 2-5 Prov:CECILLE METZGER DO 06/15/17 Guaifenesin-Codeine Phosphate* (Robitussin* AC) 5 Ml Syrup, 10 ML PO QHS Y for COUGH, #90 ML Prov:VICTOR HUGO PERRY PA-C 06/02/17 Throat Lozenges* (Cepastat*) 9 Julia Lozenge, 1 LOZENGE MT Q3H Y, #14 LOZENGE Prov:VICTOR HUGO PERRY PA-C 06/02/17 Azithromycin* (Zithromax*) 250 Mg Tablet, 250 MG PO .ZPACK DIRECTED, #6 TAB TAKE 500 MG (2 TABS) THE FIRST DAY THEN 250 MG (1 TAB) DAYS 2-5 Prov:VICTOR HUGO PERRY PA-C 06/02/17 Cetirizine Hcl* (Zyrtec*) 10 Mg Capsule, 10 MG PO DAILY, #10 TAB.CHEW Prov:FAMILIA RENDON MD 05/16/16 Reported Medications Atorvastatin Calcium (Atorvastatin Calcium) 10 Mg Tablet, 10 MG PO QHS, #30 TAB 06/15/17 Bupropion Hcl* (Bupropion XL*) 300 Mg Tab.sr.24h, 300 MG PO DAILY, TAB.SA 04/08/17 Amlodipine Besylate* (Amlodipine Besylate*) 10 Mg Tablet, 10 MG PO DAILY, #30 TAB 04/08/17 Sertraline Hcl* (Sertraline Hcl*) 100 Mg Tablet, 200 MG PO DAILY, #60 TAB 04/08/17 Trazodone Hcl* (Trazodone Hcl*) 100 Mg Tablet, 300 MG PO QHS, #30 TAB 01/19/16 Estrogen,Conj-Medroxyprogest Acet (Prempro) 0.3-1.5 Mg Tablet, 1 TAB PO DAILY, TAB 01/19/16 Omeprazole (Omeprazole) 20 Mg Tablet.dr, 20 MG PO AC BREAKFAST 04/26/11 Allergies Allergies: Coded Allergies: No Known Drug Allergies (Unverified Allergy, Unknown, 06/20/17) PMhx/Soc History of Surgery: Yes (left foot 1st digit sx) Anesthesia Reaction: No Hx Neurological Disorder: No Hx Respiratory Disorders: No Hx Cardiac Disorders: Yes (HTN,hyperlipidemia) Hx Psychiatric Problems: Yes (ANXIETY/DEPRESSION/BIPOLAR) Hx Miscellaneous Medical Probl: No (HERNIATED DISK) Hx Alcohol Use: No Hx Substance Use: No Hx Tobacco Use: No Smoking Status: Never smoker FmHx Family History: No coronary disease, No diabetes, No other Physical Exam Vitals Vital Signs Date Time Temp Pulse Resp B/P Pulse Ox O2 Delivery O2 Flow Rate FiO2 09/16/17 17:27 97.8 99 24 143/93 97 Physical Exam GENERAL: Well-developed, well-nourished female. Appears in mild distress, shaking. sweating. dyskinesia. HEAD: Normocephalic, atraumatic. EYES: Pupils are equally reactive bilaterally. EOMs grossly intact. No conjunctival erythema. ENT: Moist mucous membranes. No uvula deviation. No kissing tonsils. No exudates. NECK: Supple. No lymphadenopathy or thyromegaly. No meningismus. negative kernig. negative brudinski. LUNG: Clear to auscultation bilaterally. No rhonchi, wheezing, rales or coarse breath sounds. HEART: Regular rate and rhythm. No murmurs, rubs or gallops. ABDOMEN: No scars, ecchymosis or rashes noted. Soft, nontender, and nondistended. Positive bowel sounds in all four quadrants. No rebound tenderness , no guarding. (-) McBurneys point tenderness. No CVA tenderness. BACK: No midline tenderness. Extremities: Equal pulses bilaterally. No peripheral clubbing, cyanosis or edema. No unilateral leg swelling. NEUROLOGIC: Alert and oriented. Moving all four extremities. 5/5 strength in all extremities. Normal speech. Steady gait. SKIN: Normal color. Warm and dry. No rashes or lesions. Capillary refill < 2 seconds Result Diagram: 09/16/17181909/16/171819 Results 24 hrs Laboratory Tests Test 09/16/17 18:20 White Blood Count 13.310^3/ul Red Blood Count 4.8010^6/ul Hemoglobin 14.5g/dl Hematocrit 43.3% Mean Corpuscular Volume 90.2fl Mean Corpuscular Hemoglobin 30.2pg Mean Corpuscular Hemoglobin Concent 33.5g/dl Red Cell Distribution Width 13.0% Platelet Count 57094^3/UL Mean Platelet Volume 10.7fl Neutrophils % 61.7% Lymphocytes % 28.5% Monocytes % 7.7% Eosinophils % 1.4% Basophils % 0.5% Nucleated Red Blood Cells % 0.0/100WBC Neutrophils # 8.210^3/ul Lymphocytes # 3.810^3/ul Monocytes # 1.010^3/ul Eosinophils # 0.210^3/ul Basophils # 0.110^3/ul Nucleated Red Blood Cells # 0.010^3/ul Sodium Level 144mmol/L Potassium Level 3.8mmol/L Chloride Level 107mmol/L Carbon Dioxide Level 23mmol/L Anion Gap 18 Blood Urea Nitrogen 17mg/dl Creatinine 0.71mg/dl Glucose Level 75mg/dl Calcium Level 9.9mg/dl Total Bilirubin 0.4mg/dl Direct Bilirubin 0.00mg/dl Indirect Bilirubin 0.4mg/dl Aspartate Amino Transf (AST/SGOT) 54IU/L Alanine Aminotransferase (ALT/SGPT) 51IU/L Alkaline Phosphatase 102IU/L Total Protein 8.3g/dl Albumin 4.9g/dl Globulin 3.40g/dl Albumin/Globulin Ratio 1.44 Current Medications Medications (Trade) Dose Ordered Sig/Eve Route PRN Reason Start Time Stop Time Status Last Admin Dose Admin Lorazepam (Ativan) 1 mg ONCE ONCE IM 09/16/17 18:30 09/16/17 18:31 DC 09/16/17 18:17 Diphenhydramine HCl (Benadryl) 25 mg ONCE ONCE IM 09/16/17 19:30 09/16/17 19:31 DC 09/16/17 19:39 Ketorolac Tromethamine (Toradol) 60 mg ONCE STAT IM 09/16/17 19:16 09/16/17 19:17 DC 09/16/17 19:39 Procedures/MDM ER COURSE: I kept the patient and/or family informed of laboratory and diagnostic imaging results throughout the emergency room course. EKG, MONITORS, & DIAGNOSTIC IMAGING: EKG as ready by Dr. Rendon, sinus tachycardia, no STEMI MEDICATIONS: 1mgg ativan IM, tolerated well with no adverse reaction. LAB INTERPRETATION: CBC showed no evidence of systemic infection or severe anemia. CMP showed no evidence of electrolyte abnormalities, severe acidosis, alkalosis, renal failure , or liver disease. Lipase showed no evidence of acute pancreatitis. UA showed no evidence of leukocytes, nitrites or hematuria. Urine test was negative. MEDICAL DECISION MAKING: This is a 52 year old female who presents with anxiety, stress, back pain and sweating Vital signs were reviewed. Patient is afebrile. Patient is not hypoxic. Has multiple complaints. Consulted with my supervising physician Dr Rendon who came to examine patient at bedside and agrees with my medical decision making and discharge plans. Patient given 1mg PO ativan. Tolerated well. Had improvement in symptoms. She given 25 mg IM Benadryl and 60 mg IM Toradol. Tolerated well with no adverse reaction. Patient is walking home. Low suspicion for cauda equine syndrome, spinal epidural hematoma, spinal epidural abscess, osteomyelitis, fracture, aortic dissection, AAA, pyelonephritis, nephrolithiasis, septic stone, obstructed stone. Low suspicion for sepsis, meningitis, ACS, PE. Low suspicion for ACS, PE, AAA, dissection, DVT. Suspicion for suicidal or homicidal ideation. DISCHARGE: At this time, patient is stable for discharge and outpatient management with no new complaints during the ER course. Patient was sent home with tramadol and to follow up with pcp and pain specialist and psychiatrist. Patient will be discharged home with instructions to recheck for new or worsening symptoms such as fever, nausea, weakness, LOC and to follow up with primary care in the next 1 -2 days. Patient was advised to return to the ER for any new or worsening symptoms. Plan was discussed and patient and/or family understands and agrees. Home instructions were given. Departure Diagnosis: Primary Impression: Back pain Back pain location: low back pain Chronicity: chronic Back pain laterality : bilateral Sciatica presence: without sciatica Qualified Code: M54.5 - Chronic bilateral low back pain without sciatica Additional Impression: Stress Condition: Stable Patient Instructions: Back Pain (Acute Or Chronic) Referrals: ELDA FORD Additional Instructions: Call your primary care doctor TOMORROW for an appointment during the next 1-2 days.See the doctor sooner or return here if your condition worsens before your appointment time. CESAR BRANTLEY PA-C Sep 16, 2017 19:43
[2017-09-16 19:50] VITALS: BP 166/76; PULSE 78; RESP 20; TEMP 98.2
== END 2017-09-16 19:55 | disposition home or self-care (01) ==
LOC: FTE 17:25
DX: M54.5 Low back pain (principal); F43.9 Reaction to severe stress, unspecified; I10 Essential (primary) hypertension
CPT/HCPCS: 80053; 85025; 93005; 96372; J1200; J1885; J2060; Z7502

== ENCOUNTER 2017-09-27 17:25 | Emergency (ER) | payer OTHER ==
[~2017-09-27] VITALS: Wt 97.1 kg
[~2017-09-27 17:25] MED LIST changes: +TRAM50TA2 PO
[2017-09-27] MEDS ORDERED: HYDROCODONE/APAP (10/325) TAB PO ONE (19:00)
[2017-09-27] MEDS ORDERED: CYCL-319 PO (19:02)
[2017-09-27] MEDS ORDERED: HYDR-906 PO (19:02)
--- NOTE | 2017-09-27 19:19 | ERD ---
ER Documentation Chief Complaint Chief Complaint back pain, shoulder pain HPI 52-year-old female presents here to emergency department for complaints of lower back pain, right neck pain radiating to the right shoulder that started yesterday, has had it chronically for 6 months. Patient has history of degenerative disc disease. Patient tramadol and meloxicam at home with only mild relief. Patient denies any direct trauma in affected area. Patient denies any numbness or tingling. Patient denies any fever chills. Patient denies any deformity. Patient denies any limitation of movement of the joint. ROS All systems reviewed and are negative except as per history of present illness. Medications Home Meds Active Scripts Hydrocodone/Acetaminophen ([place] 5-325 Tablet) 1 Each Tablet, 1 TAB PO Q6H Y for SEVERE PAIN LEVEL 7-10, #20 TAB Prov:FELICIANO NICK NP 09/27/17 Cyclobenzaprine Hcl* (Cyclobenzaprine Hcl*) 10 Mg Tablet, 10 MG PO TID, #15 TAB Prov:FELICIANO NICK NP 09/27/17 Tramadol HCl (Tramadol HCl) 50 Mg Tablet, 50 MG PO Q4 Y for PAIN, #10 TAB Prov:CESAR BRANTLEY PA-C 09/16/17 Hydrocodone/Acetaminophen ([place] 10-325 Tablet) 1 Each Tablet, 1 TAB PO Q6H Y for PAIN, #20 TAB Prov:CECILLE METZGER DO 07/06/17 Hydrocodone/Acetaminophen ([place] 5-325 Tablet) 1 Each Tablet, 1 TAB PO Q6H Y for PAIN, #7 TAB Prov:CESAR BRANTLEY PA-C 06/20/17 Benzonatate* (Tessalon Perle*) 100 Mg Capsule, 100 MG PO Q8H Y for COUGH for 14 Days, CAP Prov:CESAR BRANTLEY PA-C 06/20/17 Guaifenesin-Dextromethorphan* (Robitussin* DM) 100MG/10MG/5ML Syrup, 5 ML PO Q4H Y for COUGH for 14 Days, ML Prov:CESAR BRANTLEY PA-C 06/20/17 Menthol (COUGH DROPS) 2.7 Mg Lozenge, 2.7 MG MM BID for 14 Days, LOZENGE Prov:CESAR BRANTLEY PA-C 06/20/17 Hydrocodone/Acetaminophen ([place] 10-325 Tablet) 1 Each Tablet, 1 TAB PO Q6H Y for PAIN, #20 TAB Prov:KAYELELEEMARCOCECILLE Ash DO 06/15/17 Prednisone* (Prednisone*) 20 Mg Tab, 60 MG PO DAILY for 5 Days, TAB Prov:CECILLE METZGER DO 06/15/17 Azithromycin* (Zithromax*) 250 Mg Tablet, 250 MG PO .ZPACK DIRECTED, #6 TAB TAKE 500 MG (2 TABS) THE FIRST DAY THEN 250 MG (1 TAB) DAYS 2-5 Prov:CECILLE METZGER DO 06/15/17 Guaifenesin-Codeine Phosphate* (Robitussin* AC) 5 Ml Syrup, 10 ML PO QHS Y for COUGH, #90 ML Prov:VICTOR HUGO PERRY PA-C 06/02/17 Throat Lozenges* (Cepastat*) 9 Julia Lozenge, 1 LOZENGE MT Q3H Y, #14 LOZENGE Prov:VICTOR HUGO PERRY PA-C 06/02/17 Azithromycin* (Zithromax*) 250 Mg Tablet, 250 MG PO .ZPACK DIRECTED, #6 TAB TAKE 500 MG (2 TABS) THE FIRST DAY THEN 250 MG (1 TAB) DAYS 2-5 Prov:VICTOR HUGO PERRY PA-C 06/02/17 Cetirizine Hcl* (Zyrtec*) 10 Mg Capsule, 10 MG PO DAILY, #10 TAB.CHEW Prov:FAMILIA PARKS MD 05/16/16 Reported Medications Atorvastatin Calcium (Atorvastatin Calcium) 10 Mg Tablet, 10 MG PO QHS, #30 TAB 06/15/17 Bupropion Hcl* (Bupropion XL*) 300 Mg Tab.sr.24h, 300 MG PO DAILY, TAB.SA 04/08/17 Amlodipine Besylate* (Amlodipine Besylate*) 10 Mg Tablet, 10 MG PO DAILY, #30 TAB 04/08/17 Sertraline Hcl* (Sertraline Hcl*) 100 Mg Tablet, 200 MG PO DAILY, #60 TAB 6/2/17 Trazodone Hcl* (Trazodone Hcl*) 100 Mg Tablet, 300 MG PO QHS, #30 TAB 01/19/16 Estrogen,Conj-Medroxyprogest Acet (Prempro) 0.3-1.5 Mg Tablet, 1 TAB PO DAILY, TAB 01/19/16 Omeprazole (Omeprazole) 20 Mg Tablet.dr, 20 MG PO AC BREAKFAST 04/26/11 Allergies Allergies: Coded Allergies: No Known Drug Allergies (Unverified Allergy, Unknown, 06/20/17) PMhx/Soc History of Surgery: Yes (left foot 1st digit sx) Anesthesia Reaction: No Hx Neurological Disorder: No Hx Respiratory Disorders: No Hx Cardiac Disorders: Yes (HTN,hyperlipidemia) Hx Psychiatric Problems: Yes (ANXIETY/DEPRESSION/BIPOLAR) Hx Miscellaneous Medical Probl: No (HERNIATED DISK) Hx Alcohol Use: No Hx Substance Use: No Hx Tobacco Use: No FmHx Family History: No coronary disease, No diabetes, No other Physical Exam Vitals Vital Signs Date Time Temp Pulse Resp B/P Pulse Ox O2 Delivery O2 Flow Rate FiO2 09/27/17 17:27 98.3 88 24 168/78 100 Physical Exam GENERAL: The patient is well developed and appropriate for usual state of health, in no apparent distress. CHEST: Clear to auscultation bilaterally. There are no rales, wheezes or rhonchi. HEART: Regular rate and rhythm. No murmurs, clicks, rubs or gallops. No S3 or S4. ABDOMEN: Soft, nontender and nondistended. Good bowel sounds. No rebound or guarding. No gross peritonitis. No gross organomegaly or masses. No Nash sign or McBurney point tenderness. BACK: No midline or flank tenderness. Muscle spasms noted in the paraspinal aspect of the cervical spine and the lumbar spine, able to do full range of motion without any restriction. EXTREMITIES: Equal pulses bilaterally. There is no peripheral clubbing, cyanosis or edema. No focal swelling or erythema. Full range of motion. Grossly neurovascularly intact. NEURO: Alert and oriented. Cranial nerves 2-12 intact. Motor strength in all 4 extremities with 5/5 strength. Sensation grossly intact. Normal speech and gait. SKIN: There is no apparent rash or petechia. The skin is warm and dry. HEMATOLOGIC AND LYMPHATIC: There is no evidence of excessive bruising or lymphedema. No gross cervical, axillary, or inguinal lymphadenopathy. Results 24 hrs Current Medications Medications (Trade) Dose Ordered Sig/Eve Route PRN Reason Start Time Stop Time Status Last Admin Dose Admin Acetaminophen/ Hydrocodone Bitart (Billingsley ()) 1 tab ONCE ONCE PO 09/27/17 19:00 09/27/17 19:01 DC 09/27/17 19:06 Patient was given medication for pain here in emergency department, after treatment, patient verbalized feeling much better. Patient's pain is improved. Procedures/MDM Medical Decision Making: Patient's pain is most likely consistent with a back strain and neck strain, possibly from degenerative disc disease. This is also chronic pain. No recent injury.. There is no suspicion for neurovascular compromise. Patient has intact sensation and circulation of the affected extremity and distal extremities. No incontinence, no suspicion for cauda equina syndrome, no saddle anesthesia, no symptoms of any acute bacterial infection, no symptoms of any perirectal abscesses, pilonidal cyst.There is low suspicion for septic arthritis. Patient does not have any fever. No symptoms of any aortic dissection or aortic aneurysm. Radiology exam not indicated at this time. Disposition: Home. Patient is given prescription for Billingsley for severe pain, Flexeril for muscle spasm. Patient was advised to avoid heavy lifting , apply warm compresses on affected area. Patient was advised that if symptoms are worse , numbness, tingling, high fever, unable to move joint, worsening symptoms, to return to emergency department immediately. Otherwise, patient is advised to follow up with the primary care doctor in 5-7 days for reevaluation of symptoms. Disclaimer: Inadvertent spelling and grammatical errors are likely due to EHR/ dictation software use and do not reflect on the overall quality of patient care. Also, please note that the electronic time recorded on this note does not necessarily reflect the actual time of the patient encounter. Departure Diagnosis: Primary Impression: Back pain Back pain location: low back pain Chronicity: acute Back pain laterality: left Sciatica presence: without sciatica Qualified Code: M54.5 - Acute left- sided low back pain without sciatica Additional Impression: Neck strain Encounter type: initial encounter Qualified Code: S16.1XXA - Strain of neck muscle, initial encounter Condition: Stable Patient Instructions: Back Pain (Acute Or Chronic), Neck Sprain/Strain FELICIANO NICK [employer] Sep 27, 2017 19:19
--- NOTE | 2017-09-27 19:23 | ERD ---
ER Documentation Chief Complaint Chief Complaint back pain, shoulder pain HPI 52-year-old female presents here to emergency department for complaints of lower back pain chronic pain, right neck pain radiating to the right shoulder, worse in the last 2 days. Patient has been having pain for the last 6 months. Patient with history of degenerative disc disease. Patient has been taking tramadol and meloxicam with only mild relief. Patient denies any numbness or tingling. Patient denies any direct trauma in affected area. Patient denies any dizziness ROS All systems reviewed and are negative except as per history of present illness. Medications Home Meds Active Scripts Hydrocodone/Acetaminophen ([place]pson 5-325 Tablet) 1 Each Tablet, 1 TAB PO Q6H Y for SEVERE PAIN LEVEL 7-10, #20 TAB Prov:FELICIANO NICK NP 09/27/17 Cyclobenzaprine Hcl* (Cyclobenzaprine Hcl*) 10 Mg Tablet, 10 MG PO TID, #15 TAB Prov:FELICIANO NICK NP 09/27/17 Tramadol HCl (Tramadol HCl) 50 Mg Tablet, 50 MG PO Q4 Y for PAIN, #10 TAB Prov:CESAR BRANTLEY PA-C 09/16/17 Hydrocodone/Acetaminophen ([place] 10-325 Tablet) 1 Each Tablet, 1 TAB PO Q6H Y for PAIN, #20 TAB Prov:CECILLE METZGER DO 07/06/17 Hydrocodone/Acetaminophen ([place] 5-325 Tablet) 1 Each Tablet, 1 TAB PO Q6H Y for PAIN, #7 TAB Prov:CESAR BRANTLEY PA-C 06/20/17 Benzonatate* (Tessalon Perle*) 100 Mg Capsule, 100 MG PO Q8H Y for COUGH for 14 Days, CAP Prov:CESAR BRANTLEY PA-C 06/20/17 Guaifenesin-Dextromethorphan* (Robitussin* DM) 100MG/10MG/5ML Syrup, 5 ML PO Q4H Y for COUGH for 14 Days, ML Prov:CESAR BRANTLEY PA-C 06/20/17 Menthol (COUGH DROPS) 2.7 Mg Lozenge, 2.7 MG MM BID for 14 Days, LOZENGE Prov:CESAR BRANTLEY PA-C 06/20/17 Hydrocodone/Acetaminophen ([place] 10-325 Tablet) 1 Each Tablet, 1 TAB PO Q6H Y for PAIN, #20 TAB Prov:KAYLEELEEMARCOCECILLE RiceMicky DO 06/15/17 Prednisone* (Prednisone*) 20 Mg Tab, 60 MG PO DAILY for 5 Days, TAB Prov:KAYLEELEEMARCOKATHYBÁRBARA AMicky DO 06/15/17 Azithromycin* (Zithromax*) 250 Mg Tablet, 250 MG PO .ZPAERIKA DIRECTED, #6 TAB TAKE 500 MG (2 TABS) THE FIRST DAY THEN 250 MG (1 TAB) DAYS 2-5 Prov:NEGAR METZGERBÁRBARA Aleman DO 06/15/17 Guaifenesin-Codeine Phosphate* (Robitussin* AC) 5 Ml Syrup, 10 ML PO QHS Y for COUGH, #90 ML Prov:VICTOR HUGO PERRY PA-C 06/02/17 Throat Lozenges* (Cepastat*) 9 Julia Lozenge, 1 LOZENGE MT Q3H Y, #14 LOZENGE Prov:VICTOR HUGO PERRY PA-C 06/02/17 Azithromycin* (Zithromax*) 250 Mg Tablet, 250 MG PO .ZPACK DIRECTED, #6 TAB TAKE 500 MG (2 TABS) THE FIRST DAY THEN 250 MG (1 TAB) DAYS 2-5 Prov:VICTOR HUGO PERRY PA-C 06/02/17 Cetirizine Hcl* (Zyrtec*) 10 Mg Capsule, 10 MG PO DAILY, #10 TAB.CHEW Prov:FAMILIA PARKS MD 05/16/16 Reported Medications Atorvastatin Calcium (Atorvastatin Calcium) 10 Mg Tablet, 10 MG PO QHS, #30 TAB 06/15/17 Bupropion Hcl* (Bupropion XL*) 300 Mg Tab.sr.24h, 300 MG PO DAILY, TAB.SA 04/08/17 Amlodipine Besylate* (Amlodipine Besylate*) 10 Mg Tablet, 10 MG PO DAILY, #30 TAB 04/08/17 Sertraline Hcl* (Sertraline Hcl*) 100 Mg Tablet, 200 MG PO DAILY, #60 TAB 04/08/17 Trazodone Hcl* (Trazodone Hcl*) 100 Mg Tablet, 300 MG PO QHS, #30 TAB 01/19/16 Estrogen,Conj-Medroxyprogest Acet (Prempro) 0.3-1.5 Mg Tablet, 1 TAB PO DAILY, TAB 01/19/16 Omeprazole (Omeprazole) 20 Mg Tablet.dr, 20 MG PO AC BREAKFAST 04/26/11 Allergies Allergies: Coded Allergies: No Known Drug Allergies (Unverified Allergy, Unknown, 06/20/17) PMhx/Soc History of Surgery: Yes (left foot 1st digit sx) Anesthesia Reaction: No Hx Neurological Disorder: No Hx Respiratory Disorders: No Hx Cardiac Disorders: Yes (HTN,hyperlipidemia) Hx Psychiatric Problems: Yes (ANXIETY/DEPRESSION/BIPOLAR) Hx Miscellaneous Medical Probl: No (HERNIATED DISK) Hx Alcohol Use: No Hx Substance Use: No Hx Tobacco Use: No Physical Exam Vitals Vital Signs Date Time Temp Pulse Resp B/P Pulse Ox O2 Delivery O2 Flow Rate FiO2 09/27/17 17:27 98.3 88 24 168/78 100 Physical Exam GENERAL: The patient is well developed and appropriate for usual state of health, in no apparent distress. CHEST: Clear to auscultation bilaterally. There are no rales, wheezes or rhonchi. HEART: Regular rate and rhythm. No murmurs, clicks, rubs or gallops. No S3 or S4. ABDOMEN: Soft, nontender and nondistended. Good bowel sounds. No rebound or guarding. No gross peritonitis. No gross organomegaly or masses. No Nash sign or McBurney point tenderness. BACK: No midline or flank tenderness. muscle spasms noted in paraspinal aspect of right cervical spine and lower lumbar spine EXTREMITIES: Equal pulses bilaterally. There is no peripheral clubbing, cyanosis or edema. No focal swelling or erythema. Full range of motion. Grossly neurovascularly intact. NEURO: Alert and oriented. Cranial nerves 2-12 intact. Motor strength in all 4 extremities with 5/5 strength. Sensation grossly intact. Normal speech and gait. SKIN: There is no apparent rash or petechia. The skin is warm and dry. HEMATOLOGIC AND LYMPHATIC: There is no evidence of excessive bruising or lymphedema. No gross cervical, axillary, or inguinal lymphadenopathy. Results 24 hrs Current Medications Medications (Trade) Dose Ordered Sig/Eve Route PRN Reason Start Time Stop Time Status Last Admin Dose Admin Acetaminophen/ Hydrocodone Bitart (Simpson (10/325)) 1 tab ONCE ONCE PO 09/27/17 19:00 09/27/17 19:01 DC 09/27/17 19:06 Patient was given medication for pain here in emergency department, after treatment, patient verbalized feeling much better. Patient's pain is improved. Procedures/MDM Medical Decision Making: Patient's pain is most likely consistent with a back strain and neck strain, also can be from musculoskeletal pain, degenerative disc disease. Patient has had this chronic pain. There is no suspicion for neurovascular compromise. Patient has intact sensation and circulation of the affected extremity and distal extremities. No incontinence, no suspicion for cauda equina syndrome, no saddle anesthesia, no symptoms of any acute bacterial infection, no symptoms of any perirectal abscesses, pilonidal cyst.There is low suspicion for septic arthritis. Patient does not have any fever. No symptoms of any aortic dissection or aortic aneurysm. Radiology exam not indicated at this time. Disposition: Home. Patient is given prescription for Simpson severe pain, Flexeril for muscle spasm. Patient was advised to avoid heavy lifting , apply warm compresses on affected area. Patient was advised that if symptoms are worse , numbness, tingling, high fever, unable to move joint, worsening symptoms, to return to emergency department immediately. Otherwise, patient is advised to follow up with the primary care doctor in 5-7 days for reevaluation of symptoms. Disclaimer: Inadvertent spelling and grammatical errors are likely due to EHR/ dictation software use and do not reflect on the overall quality of patient care. Also, please note that the electronic time recorded on this note does not necessarily reflect the actual time of the patient encounter. Departure Diagnosis: Primary Impression: Back pain Back pain location: low back pain Chronicity: acute Back pain laterality: left Sciatica presence: without sciatica Qualified Code: M54.5 - Acute left- sided low back pain without sciatica Additional Impression: Neck strain Encounter type: initial encounter Qualified Code: S16.1XXA - Strain of neck muscle, initial encounter Condition: Stable Patient Instructions: Back Pain (Acute Or Chronic), Neck Sprain/Strain FELICIANO NICK NP Sep 27, 2017 19:23
[2017-09-27 19:42] VITALS: BP 133/71; PULSE 75; RESP 16; TEMP 98
== END 2017-09-27 19:40 | disposition home or self-care (01) ==
LOC: FTE 17:25
DX: S39.92XA Unspecified injury of lower back, initial encounter (principal); S16.1XXA Strain of muscle, fascia and tendon at neck level, initial encounter; I10 Essential (primary) hypertension; X58.XXXA Exposure to other specified factors, initial encounter; Y92.9 Unspecified place or not applicable
CPT/HCPCS: Z7502; Z7610; 99284

== ENCOUNTER 2018-01-09 12:57 | Emergency (ER) | END 2018-01-09 16:09 | disposition home or self-care (01) ==

== ENCOUNTER 2018-07-13 19:13 | Emergency (ER) | END 2018-07-13 20:30 | disposition home or self-care (01) ==

== ENCOUNTER 2019-03-03 17:47 | Emergency (ER) | payer OTHER ==
[~2019-03-03] VITALS: Ht 152.4 cm; Wt 99.4 kg
[~2019-03-03 17:47] MED LIST changes: +AZIT250T PO; -AZIT250T94 PO; +BENZ-6 PO; -BENZ100C70 PO; -BUPR300T36 PO; +BUPR300T4 PO; +CODE5LIQ2 PO; +CYCL10TA7 PO; +GUAI5SYR2 PO; +HYDR-3980 PO; +HYDR-4011 PO; +HYDR-842 PO; -HYDR-902 PO; -HYDR-906 PO; +IBUP-1542 PO; +METH750T93 PO; +NAPR-688 PO; +TRA100 PO; -TRAZ100T15 PO; +TRIA15CR55 TOP; -UDROBAC PO; -UDROBDM PO
[2019-03-03 17:55] VITALS: Ht 152.4 cm; Wt 99.4 kg
[2019-03-03] MEDS ORDERED: KETOROLAC 15 MG INJ IM STA (19:51)
--- NOTE | 2019-03-03 20:34 | ERD ---
ER Documentation Chief Complaint Chief Complaint L leg pain, R shoulder/neck pain, R facial pain X 4 days HPI This is a 54-year-old female who presents for evaluation of generalized cramping. She has history of hypertension, but otherwise she denies any trauma, no chest pain or shortness of breath. She denies nausea or vomiting. Denies numbness or tingling. She has not had any weakness, no speech changes, no dysphagia. There are no alleviating or aggravating factors. ROS All systems reviewed and are negative except as per history of present illness. Medications Home Meds Active Scripts Triamcinolone Acetonide (Triamcinolone Acetonide) 0.1% - 15 Gm Cream.gm., 1 APPL IC TOP BID for 7 Days, #1 TUB Prov:GÓMEZ AWAD MD 07/16/18 Hydroxyzine Hcl* (Atarax*) 25 Mg Tab, 25 MG PO Q6H PRN for ITCHING, #20 TAB Prov:GÓMEZ AWAD MD 07/16/18 Methocarbamol* (Robaxin*) 750 Mg Tablet, 750 MG PO Q6H PRN for MUSCLE SPASMS, #10 TAB Prov:ABNER SHEFFIELD DO 07/13/18 Naproxen* (Naproxen*) 500 Mg Tablet, 500 MG PO BID PRN for PAIN, #20 TAB Prov:ABNER SHEFFIELD DO 07/13/18 Ibuprofen* (Motrin*) 600 Mg Tab, 600 MG PO Q6H PRN for PAIN AND OR ELEVATED TEMP, #30 TAB Prov:MARLA MCLAUGHLIN PA-C 01/09/18 Hydrocodone/Acetaminophen ([place] 5-325 Tablet) 1 Each Tablet, 1 TAB PO Q6H PRN for SEVERE PAIN LEVEL 7-10, #20 TAB Prov:FELICIANO NICK NP 09/27/17 Cyclobenzaprine Hcl* (Cyclobenzaprine Hcl*) 10 Mg Tablet, 10 MG PO TID, #15 TAB Prov:FELICIANO NICK NP 09/27/17 Tramadol HCl (Tramadol HCl) 50 Mg Tablet, 50 MG PO Q4 PRN for PAIN, #10 TAB Prov:CESAR BRANTLEY PA-C 09/16/17 Hydrocodone/Acetaminophen ([place] 10-325 Tablet) 1 Each Tablet, 1 TAB PO Q6H PRN for PAIN, #20 TAB Prov:KAYLEELEEMARCOKATHYSUEAlber RiceMicky DO 07/06/17 Hydrocodone/Acetaminophen ([place] 5-325 Tablet) 1 Each Tablet, 1 TAB PO Q6H PRN for PAIN, #7 TAB Prov:CESAR BRANTLEY PA-C 06/20/17 Benzonatate* (Tessalon Perle*) 100 Mg Capsule, 100 MG PO Q8H PRN for COUGH for 14 Days, CAP Prov:CESAR BRANTLEY PA-C 06/20/17 Guaifenesin-Dextromethorphan* (Robitussin* DM) 100MG/10MG/5ML Syrup, 5 ML PO Q4H PRN for COUGH for 14 Days, ML Prov:CESAR BRANTLEY PA-C 06/20/17 Menthol (COUGH DROPS) 2.7 Mg Lozenge, 2.7 MG MM BID for 14 Days, LOZENGE Prov:CESAR BRANTLEY PA-C 06/20/17 Hydrocodone/Acetaminophen ([place] 10-325 Tablet) 1 Each Tablet, 1 TAB PO Q6H PRN for PAIN, #20 TAB Prov:CECILLE METZGER DO 06/15/17 Prednisone* (Prednisone*) 20 Mg Tab, 60 MG PO DAILY for 5 Days, TAB Prov:CECILLE METZGER DO 06/15/17 Azithromycin* (Zithromax*) 250 Mg Tablet, 250 MG PO .ANGEL DIRECTED, #6 TAB TAKE 500 MG (2 TABS) THE FIRST DAY THEN 250 MG (1 TAB) DAYS 2-5 Prov:CECILLE METZGER DO 06/15/17 Guaifenesin-Codeine Phosphate* (Robitussin* AC) 5 Ml Syrup, 10 ML PO QHS PRN for COUGH, #90 ML Prov:VICTOR HUGO PERRY PA-C 06/02/17 Throat Lozenges* (Cepastat*) 9 Julia Lozenge, 1 LOZENGE MT Q3H PRN, #14 LOZENGE Prov:VICTOR HUGO PERRY PA-C 06/02/17 Azithromycin* (Zithromax*) 250 Mg Tablet, 250 MG PO .ANGEL DIRECTED, #6 TAB TAKE 500 MG (2 TABS) THE FIRST DAY THEN 250 MG (1 TAB) DAYS 2-5 Prov:VICTOR HUGO PERRY PA-C 06/02/17 Cetirizine Hcl* (Zyrtec*) 10 Mg Capsule, 10 MG PO DAILY, #10 TAB.CHEW Prov:FAMILIA PARKS MD 05/16/16 Reported Medications Atorvastatin Calcium (Atorvastatin Calcium) 10 Mg Tablet, 10 MG PO QHS, #30 TAB 06/15/17 Bupropion Hcl* (Bupropion XL*) 300 Mg Tab.sr.24h, 300 MG PO DAILY, TAB.SA 04/08/17 Amlodipine Besylate* (Amlodipine Besylate*) 10 Mg Tablet, 10 MG PO DAILY, #30 TAB 04/08/17 Sertraline Hcl* (Sertraline Hcl*) 100 Mg Tablet, 200 MG PO DAILY, #60 TAB 04/08/17 Trazodone Hcl* (Trazodone Hcl*) 100 Mg Tablet, 300 MG PO QHS, #30 TAB 01/19/16 Estrogen,Conj-Medroxyprogest Acet (Prempro) 0.3-1.5 Mg Tablet, 1 TAB PO DAILY, TAB 01/19/16 Omeprazole (Omeprazole) 20 Mg Tablet.dr, 20 MG PO AC BREAKFAST 04/26/11 Allergies Allergies: Coded Allergies: No Known Drug Allergies (Unverified Allergy, Unknown, 06/20/17) PMhx/Soc History of Surgery: Yes (left foot 1st digit sx) Anesthesia Reaction: No Hx Neurological Disorder: No Hx Respiratory Disorders: No Hx Cardiac Disorders: Yes (HTN,hyperlipidemia) Hx Psychiatric Problems: Yes (ANXIETY/DEPRESSION/BIPOLAR) Hx Miscellaneous Medical Probl: No (HERNIATED DISK) Hx Alcohol Use: No Hx Substance Use: No Hx Tobacco Use: No Smoking Status: Current every day smoker Physical Exam Vitals Vital Signs Date Temp Pulse Resp B/P (MAP) Pulse Ox O2 O2 Flow FiO2 Time Delivery Rate 03/03/19 98.0 77 20 157/89 99 Room Air 22:02 (111) 03/03/19 85 28 186/109 100 Room Air 19:30 (134) 4/27/19 99.0 100 18 232/113 100 17:55 (152) Physical Exam Const: Well-developed, well-nourished anxious appearing Head: Atraumatic Eyes: Normal Conjunctiva ENT: Normal External Ears, Nose and Mouth. Neck: Full range of motion. No meningismus. Resp: Clear to auscultation bilaterally Cardio: Regular rate and rhythm, no murmurs Abd: Soft, non tender, non distended. Normal bowel sounds Skin: No petechiae or rashes Back: No midline or flank tenderness Ext: No cyanosis, or edema Neur: Awake and alert. Legs are trembling in a rhythmic pattern, strength is 5 out of 5 bilaterally, no cerebellar ataxia. Psych: Normal Mood and Affect Result Diagram: 03/03/19201303/03/192013 Results 24 hrs Laboratory Tests Test 03/03/19 20:14 03/03/19 21:11 White Blood Count 11.9 10^3/ul Red Blood Count 4.68 10^6/ul Hemoglobin 13.6 g/dl Hematocrit 41.5 % Mean Corpuscular Volume 88.7 fl Mean Corpuscular Hemoglobin 29.1 pg Mean Corpuscular Hemoglobin Concent 32.8 g/dl Red Cell Distribution Width 13.4 % Platelet Count 367 10^3/UL Mean Platelet Volume 10.2 fl Immature Granulocytes % 0.500 % Neutrophils % 56.5 % Lymphocytes % 30.8 % Monocytes % 9.4 % Eosinophils % 2.2 % Basophils % 0.6 % Nucleated Red Blood Cells % 0.0 /100WBC Immature Granulocytes # 0.060 10^3/ul Neutrophils # 6.7 10^3/ul Lymphocytes # 3.7 10^3/ul Monocytes # 1.1 10^3/ul Eosinophils # 0.3 10^3/ul Basophils # 0.1 10^3/ul Nucleated Red Blood Cells # 0.0 10^3/ul Sodium Level 143 mmol/L Potassium Level 3.3 mmol/L Chloride Level 106 mmol/L Carbon Dioxide Level 29 mmol/L Anion Gap 8 Blood Urea Nitrogen 19 mg/dl Creatinine 0.61 mg/dl Est Glomerular Filtrat Rate mL/min > 60 mL/min Glucose Level 109 mg/dl Calcium Level 8.8 mg/dl Total Bilirubin 0.2 mg/dl Direct Bilirubin 0.00 mg/dl Indirect Bilirubin 0.2 mg/dl Aspartate Amino Transf (AST/SGOT) 40 IU/L Alanine Aminotransferase (ALT/SGPT) 40 IU/L Alkaline Phosphatase 138 IU/L Troponin I < 0.012 ng/ml Total Protein 7.0 g/dl Albumin 4.0 g/dl Globulin 3.00 g/dl Albumin/Globulin Ratio 1.33 Urine Color YELLOW Urine Clarity SLIGHTLY CLOUDY Urine pH 6.0 Urine Specific [place] 1.015 Urine Ketones NEGATIVE mg/dL Urine Nitrite NEGATIVE mg/dL Urine Bilirubin NEGATIVE mg/dL Urine Urobilinogen NEGATIVE mg/dL Urine Leukocyte Esterase TRACE [place]/ul Urine Microscopic RBC 46 /HPF Urine Microscopic WBC 7 /HPF Urine Squamous Epithelial Cells FEW /HPF Urine Hemoglobin 3+ mg/dL Urine Glucose NEGATIVE mg/dL Urine Total Protein NEGATIVE mg/dl Current Medications Medications Dose Sig/Eve Start Time Status Last (Trade) Ordered Route PRN Stop Time Admin Dose Reason Admin Ketorolac 15 mg ONCE STAT 03/03/19 DC 03/03/19 Tromethamine IM 19:51 20:10 (Toradol) 03/03/19 19:53 Potassium 40 meq ONCE STAT 03/03/19 DC 03/03/19 Chloride PO 21:10 21:16 (Klor-Con 20) 03/03/19 21:11 Procedures/MDM 54-year-old female presents for evaluation of a generalized pain and cramping. On exam she is afebrile and nontoxic-appearing. Suspect she may have a component of restless leg syndrome, her labs were overall unremarkable, aside from a mildly low potassium of 3.3. She is given potassium repletion in the ED, as well as pain control, she felt significantly better, I discussed findings with patient, and at discharge she was in no acute distress. Strict return precautions were given for any chest pain, shortness of breath, or any other acu te concerns. EKG: Rate/Rhythm: Normal Sinus Rhythm QRS, ST, T-waves: No changes consistent w/ acute ischemia Impression: No evidence of ischemia or arrhythmia Departure Diagnosis: Primary Impression: Restless leg syndrome Additional Impression: Cramps, extremity Condition: Stable SUMA BULLOCK MD Mar 03, 2019 20:34
[2019-03-03] MEDS ORDERED: POTASSIUM CHLORIDE (SR) 20 MEQ TAB PO STA (21:10)
[2019-03-03 22:02] VITALS: BP 157/89; PULSE 77; RESP 20
== END 2019-03-03 22:28 | disposition home or self-care (01) ==
LOC: E/R 17:47
DX: G25.81 Restless legs syndrome (principal); I10 Essential (primary) hypertension; F17.210 Nicotine dependence, cigarettes, uncomplicated
CPT/HCPCS: 36415; 71045; 80053; 81001; 84484; 85025; 93005; 96372; J1885; Z7502; Z7610

== ENCOUNTER 2019-04-02 01:22 | Emergency (ER) | payer OTHER ==
[~2019-04-02] VITALS: Ht 152.4 cm; Wt 96.0 kg
[2019-04-02 01:25] VITALS: Ht 152.4 cm; Wt 96.0 kg
[2019-04-02] MEDS ORDERED: LORAZEPAM 2 MG INJ IM ONE ×2 (02:00→03:00)
--- NOTE | 2019-04-02 03:20 | ERD ---
ER Documentation Chief Complaint Chief Complaint constant muslce cramping BLE x 1 hour. hx same w/ low K & meth use HPI This is a 54-year-old female with a past medical history of psychiatric illness, polysubstance abuse who is presenting with agitation and lower extremity cramping that occurred approximately 1 to 2 hours prior to arrival. The cramping started while the patient was sleeping. She does endorse using methamphetamine last night before going to sleep. She does not endorse any suicidal or homicidal ideations. She does not endorse auditory or visual hallucinations, but she is picking at her lower extremities. The patient is difficult to redirect. She would not answer review of system questions. History and physical is limited secondary to psychosis. ROS Limited secondary to agitation and altered mental status Allergies Allergies: Coded Allergies: No Known Allergy (Unverified , 04/02/19) PMhx/Soc Medical and Surgical Hx: pt denies Surgical Hx History of Surgery: No Hx Neurological Disorder: No Hx Respiratory Disorders: No Hx Cardiac Disorders: No Hx Psychiatric Problems: Yes Hx Miscellaneous Medical Probl: Yes (drug use) Hx Alcohol Use: Yes Hx Substance Use: Yes (meth) Hx Tobacco Use: Yes Smoking Status: Current every day smoker FmHx Family History: No diabetes Physical Exam Vitals Vital Signs Date Temp Pulse Resp B/P (MAP) Pulse Ox O2 O2 Flow FiO2 Time Delivery Rate 04/02/19 86 19 131/68 99 Room Air 01:50 (89) 04/02/19 100.1 115 25 153/128 99 01:25 (136) Physical Exam Const: No acute distress Head: Atraumatic Eyes: Normal Conjunctiva ENT: Normal External Ears, Nose. Dry mucous membranes. Neck: Full range of motion. No meningismus. Resp: Clear to auscultation bilaterally Cardio: Regular rate and rhythm, no murmurs Abd: Soft, non tender, non distended. Normal bowel sounds Skin: No petechiae or rashes Back: No midline or flank tenderness Ext: No cyanosis, or edema Neur: Awake and alert. Moving all extremities spontaneously. No obvious foca l deficits. No facial droop. Psych: Agitated, picking at his lower extremities. Result Diagram: 04/02/1914604/02/197 Results 24 hrs Laboratory Tests Test 04/02/19 01:47 White Blood Count 12.8 10^3/ul Red Blood Count 4.63 10^6/ul Hemoglobin 13.6 g/dl Hematocrit 41.2 % Mean Corpuscular Volume 89.0 fl Mean Corpuscular Hemoglobin 29.4 pg Mean Corpuscular Hemoglobin Concent 33.0 g/dl Red Cell Distribution Width 13.4 % Platelet Count 382 10^3/UL Mean Platelet Volume 10.3 fl Immature Granulocytes % 0.500 % Neutrophils % 63.2 % Lymphocytes % 25.0 % Monocytes % 8.6 % Eosinophils % 2.2 % Basophils % 0.5 % Nucleated Red Blood Cells % 0.0 /100WBC Immature Granulocytes # 0.060 10^3/ul Neutrophils # 8.1 10^3/ul Lymphocytes # 3.2 10^3/ul Monocytes # 1.1 10^3/ul Eosinophils # 0.3 10^3/ul Basophils # 0.1 10^3/ul Nucleated Red Blood Cells # 0.0 10^3/ul Sodium Level 139 mmol/L Potassium Level 3.9 mmol/L Chloride Level 103 mmol/L Carbon Dioxide Level 28 mmol/L Anion Gap 8 Blood Urea Nitrogen 23 mg/dl Creatinine 0.93 mg/dl Est Glomerular Filtrat Rate mL/min > 60 mL/min Glucose Level 128 mg/dl Calcium Level 8.8 mg/dl Total Bilirubin 0.3 mg/dl Direct Bilirubin 0.00 mg/dl Indirect Bilirubin 0.3 mg/dl Aspartate Amino Transf (AST/SGOT) 43 IU/L Alanine Aminotransferase (ALT/SGPT) 51 IU/L Alkaline Phosphatase 164 IU/L Total Protein 7.7 g/dl Albumin 4.2 g/dl Globulin 3.50 g/dl Albumin/Globulin Ratio 1.20 Salicylates Level < 1.0 mg/dl Acetaminophen Level < 10.0 ug/ml Ethyl Alcohol Level < 10.0 mg/dl Current Medications Medications Dose Sig/Eve Start Time Status Last (Trade) Ordered Route PRN Stop Time Admin Dose Reason Admin Lorazepam 2 mg ONCE ONCE 04/02/19 DC 04/02/19 (Ativan) IM 02:00 01:36 04/02/19 02:01 Lorazepam 2 mg ONCE ONCE 04/02/19 DC (Ativan) IM 03:00 04/02/19 03:01 Procedures/[facility] The patient's presentation warrants further investigation. Previous medical records, if available, were reviewed. LABS The patient's laboratory testing was obtained and reviewed. No emergent treatment was required unless described below. CBC: Leukocytosis without shift, likely reactive, low clinical suspicion for infection. No E/o severe anemia or thrombocytopenia Chemistry: No E/o severe acidosis or alkalosis or renal failure or liver disease or diabetic ketoacidosis. Elevated BUN, potentially concerning for dehydration. Urine: Patient refused to provide a urine sample. Tox: No E/o alcohol abuse. No E/o salicylate or acetaminophen use. UDS not completed as patient refused to provide a urine sample. TREATMENT/DISPOSITION The patient presents for reported lower extremity cramping, agitation, picking at the lower extremities and known methamphetamine abuse. The patient's workup included a medical screening examination, laboratory analysis, and diagnostic imaging such as EKG, chest x-ray or CT brain as indicated. The patient's laboratory analysis, diagnostic imaging do not suggest an acute organic pathology. At this time I believe the patient's presentation is consistent with underlying psychiatric illness and likely exacerbation of this illness and/or psychosis. I have a much lower clinical concern for delirium or acute organic pathology such as toxicologic, metabolic, ischemic, intracranial hemorrhage, infectious process. However, we must rule this out prior to relying a diagnosis of underlying psychiatric illness. The patient is medically cleared. I do suspect that the patient's symptoms are related to her substance abuse. At this time, I do suspect substance-induced psychosis. The patient does not endorse suicidal homicidal ideations. It is unclear if the patient is having visual hallucinations as she was picking at her legs, but she did not endorse visual or auditory hallucinations. The patient does not appear to be an immediate danger to herself or others. However, she will need to be reassessed upon clinical sobriety. The patient did not require any physical or chemical restraint while under my care. The patient was given Ativan in the emergency department to help calm her nerves. The patient requires observation until clinical sobriety. OBSERVATION NOTE Time: 4 hours Family Hx: No Diabetes Evaluation: Multiple exams showed improving symptoms and no evidence of worsening psychosis feel the LS DISCHARGE (anticipated) The patient will be signed out to the oncoming physician. I anticipate that the patient will be stable for discharge. The patient will require follow-up with a primary care physician in 1-3 days. The patient will need to be given strict precautions with which to return to the emergency department. Prescriptions: None The patient's blood pressure was elevated at greater than 120/80 while in the emergency department. The patient was otherwise stable with no evidence of hypertensive urgency or emergency. The patient does not require admission for blood pressure control. I have discussed with the patient the risks of hy pertension. I have instructed the patient to return to the ER for any new or worsening symptoms including chest pain, shortness of breath, headache, blurred vision, confusion, nausea, vomiting or LOC. I have advised the patient to follow up with the primary care physician for outpatient monitoring and treatment for hypertension in 1-3 days. Disclaimer: Inadvertent spelling and grammatical errors are likely due to EHR/dictation software use and do not reflect on the overall quality of patient care. Note that the electronic time recorded on this note does not necessarily reflect the actual time of the patient encounter. Departure Diagnosis: Primary Impression: Methamphetamine abuse Additional Impressions: Agitation Formication Tachycardia Muscle cramps Leukocytosis Leukocytosis type: unspecified Qualified Codes: D72.829 - Elevated white blood cell count, unspecified Dehydration Condition: Stable Patient Instructions: Psychosis, Understanding Methamphetamine Abuse and Addiction Additional Instructions: Thank you for for coming to [facility] for your care today. Pl ease ask your nurse or provider if you have questions about your care today and do not leave until all your questions have been answered. Please use any medications given as directed and follow-up with your doctor (or the doctor you were referred to) in the next 1-3 days. If you do not have a primary care doctor you may follow up at the [facility] or critical access hospital clinic (listed below). You may also use motrin and tylenol as needed for fever and/or pain unless instructed otherwise by your provider or nurse. Indications for more urgent follow-up have been discussed, but you may return to the Emergency Department at ANY time for any worrisome or worsening symptoms. If you have abdominal pain, please know that no test or exam you received is perfect and you should follow up within 8 hours for continued pain. If you had any imaging studies today, such as an X-Ray or CT Scan, these studies will be reviewed later by a radiologist. You will be called if there are important findings that were not identified today, so make sure the contact information you provided at registration is correct. If you received any narcotic pain control medicine today, such as Vicodin, Morphine or Dilaudid, your coordination and judgment may be affected for a number of hours. Please do not drive or operate heavy machinery, and you may want someone to assist you at home. If you were given a prescription for narcotic medication, be aware that it is very addictive- use sparingly and only if necessary. PLEASE SEEK FURTHER EVALUATION AND MANAGEMENT AT YOUR DOCTORS OFFICE WITHIN THE NEXT 1-3 DAYS. IT IS YOUR RESPONSIBILITY TO MAKE AN APPOINTMENT FOR FOLOW-UP CARE. IF YOU HAVE A PRIMARY DOCTOR, PLEASE CALL THEIR OFFICE TO SCHEDULE AN APPOINTMENT FOR FOLLOW UP. IF YOU DO NOT HAVE A PRIMARY DOCTOR YOU CAN CALL OUR PHYSICIAN REFERRAL HOTLINE AT IF YOU CAN NOT AFFORD TO SEE A PHYSICIAN YOU CAN CHOSE FROM THE FOLLOWING [facility] CLINICS: [facility] [address] [facility] [address] [facility] [facility] [address] [facility] [address] [facility] [address] [facility]. [address] SAUMYA QUEZADA MD April 02, 2019 03:20
[2019-04-02 09:11] VITALS: BP 140/96; PULSE 68; RESP 18
== END 2019-04-02 10:43 | disposition home or self-care (01) ==
LOC: EDBD → E/R 01:22 → MERGE 01:22 → EDBD 01:22 → E/R 10:43
DX: F15.10 Other stimulant abuse, uncomplicated (principal); F17.210 Nicotine dependence, cigarettes, uncomplicated; R20.2 Paresthesia of skin; R00.0 Tachycardia, unspecified; D72.829 Elevated white blood cell count, unspecified; E86.0 Dehydration
CPT/HCPCS: 36415; 80053; 80307; 85025; 96372; J2060; Z7502

== ENCOUNTER 2019-05-25 13:40 | Emergency (ER) | payer OTHER ==
[~2019-05-25] VITALS: Wt 96.0 kg
[2019-05-25] MEDS ORDERED: IBUP-1542 PO (14:18)
[2019-05-25] MEDS ORDERED: NICARDipine HCL 30 MG CAPSULE PO ONE (14:30)
[2019-05-25] MEDS ORDERED: IBUPROFEN 800 MG TAB PO ONE (14:30)
[2019-05-25 15:07] VITALS: BP 169/96; PULSE 77; RESP 20
--- NOTE | 2019-05-25 18:08 | ERD ---
ER Documentation Chief Complaint Chief Complaint GENERALIZED BODY PAIN WITH WEAKNESS X 3 WEEKS HPI Patient is a 54-year-old female with a history of hypertension, anxiety, and depression who presents with body pain. The patient said that she has had 3 weeks where she "feels like I have the flu". The patient feels generalized body aches. She said it is worse with walking. She felt like her hands are swollen in the morning. She denies fevers. She tried tramadol which was not helping. She is taking her blood pressure medicines. She has not called her primary doc tor as of yet. Her primary doctor is Dr. Albert Menchaca. Upon review of old medical records the patient has multiple visits to the ER for various complaints. ROS All systems reviewed and are negative except as per history of present illness. Medications Home Meds Active Scripts Ibuprofen* (Motrin*) 600 Mg Tab, 600 MG PO Q6H PRN for PAIN AND OR ELEVATED TEMP, #30 TAB Prov:ALEXANDRA FLORES MD 05/25/19 Triamcinolone Acetonide (Triamcinolone Acetonide) 0.1% - 15 Gm Cream.gm., 1 APPLIC TOP BID for 7 Days, #1 TUB Prov:GÓMEZ AWAD MD 07/16/18 Hydroxyzine Hcl* (Atarax*) 25 Mg Tab, 25 MG PO Q6H PRN for ITCHING, #20 TAB Prov:GÓMEZ AWAD MD 07/16/18 Methocarbamol* (Robaxin*) 750 Mg Tablet, 750 MG PO Q6H PRN for MUSCLE SPASMS, #10 TAB Prov:ABNER SHEFFIELD DO 07/13/18 Naproxen* (Naproxen*) 500 Mg Tablet, 500 MG PO BID PRN for PAIN, #20 TAB Prov:ABNER SHEFFIELD DO 07/13/18 Ibuprofen* (Motrin*) 600 Mg Tab, 600 MG PO Q6H PRN for PAIN AND OR ELEVATED TEMP, #30 TAB Prov:MARLA MCLAUGHLIN PA-C 01/09/18 Hydrocodone/Acetaminophen ([place] 5-325 Tablet) 1 Each Tablet, 1 TAB PO Q6H PRN for SEVERE PAIN LEVEL 7-10, #20 TAB Prov:FELICIANO NICK NP 09/27/17 Cyclobenzaprine Hcl* (Cyclobenzaprine Hcl*) 10 Mg Tablet, 10 MG PO TID, #15 TAB Prov:FELICIANO NICK NP 09/27/17 Tramadol HCl (Tramadol HCl) 50 Mg Tablet, 50 MG PO Q4 PRN for PAIN, #10 TAB Prov:CESAR BRANTLEY PA-C 09/16/17 Hydrocodone/Acetaminophen ([place] 10-325 Tablet) 1 Each Tablet, 1 TAB PO Q6H PRN for PAIN, #20 TAB Prov:CECILLE METZGER DO 07/06/17 Hydrocodone/Acetaminophen ([place] 5-325 Tablet) 1 Each Tablet, 1 TAB PO Q6H PRN for PAIN, #7 TAB Prov:CESAR BRANTLEY PA-C 06/20/17 Benzonatate* (Tessalon Perle*) 100 Mg Capsule, 100 MG PO Q8H PRN for COUGH for 1 4 Days, CAP Prov:CESAR BRANTLEY PA-C 06/20/17 Guaifenesin-Dextromethorphan* (Robitussin* DM) 100MG/10MG/5ML Syrup, 5 ML PO Q4H PRN for COUGH for 14 Days, ML Prov:CESAR BRANTLEY PA-C 06/20/17 Menthol (COUGH DROPS) 2.7 Mg Lozenge, 2.7 MG MM BID for 14 Days, LOZENGE Prov:CESAR BRANTLEY PA-C 06/20/17 Hydrocodone/Acetaminophen ([place] 10-325 Tablet) 1 Each Tablet, 1 TAB PO Q6H PRN for PAIN, #20 TAB Prov:CECILLE METZGER DO 06/15/17 Prednisone* (Prednisone*) 20 Mg Tab, 60 MG PO DAILY for 5 Days, TAB Prov:CECILLE METZGER DO 06/15/17 Azithromycin* (Zithromax*) 250 Mg Tablet, 250 MG PO .MELANIACK DIRECTED, #6 TAB TAKE 500 MG (2 TABS) THE FIRST DAY THEN 250 MG (1 TAB) DAYS 2-5 Prov:CECILLE METZGER DO 06/15/17 Guaifenesin-Codeine Phosphate* (Robitussin* AC) 5 Ml Syrup, 10 ML PO QHS PRN for COUGH, #90 ML Prov:VICTOR HUGO PERRY PA-C 06/02/17 Throat Lozenges* (Cepastat*) 9 Julia Lozenge, 1 LOZENGE MT Q3H PRN, #14 LOZENGE Prov:VICTOR HUGO PERRY PA-C 06/02/17 Azithromycin* (Zithromax*) 250 Mg Tablet, 250 MG PO .ANGEL DIRECTED, #6 TAB TAKE 500 MG (2 TABS) THE FIRST DAY THEN 250 MG (1 TAB) DAYS 2-5 Prov:VICTOR HUGO PERRY PA-C 06/02/17 Cetirizine Hcl* (Zyrtec*) 10 Mg Capsule, 10 MG PO DAILY, #10 TAB.CHEW Prov:FAMILIA PARKS MD 05/16/16 Reported Medications Atorvastatin Calcium (Atorvastatin Calcium) 10 Mg Tablet, 10 MG PO QHS, #30 TAB 06/15/17 Bupropion Hcl* (Bupropion XL*) 300 Mg Tab.sr.24h, 300 MG PO DAILY, TAB.SA 04/08/17 Amlodipine Besylate* (Amlodipine Besylate*) 10 Mg Tablet, 10 MG PO DAILY, #30 TAB 04/08/17 Sertraline Hcl* (Sertraline Hcl*) 100 Mg Tablet, 200 MG PO DAILY, #60 TAB 04/08/17 Trazodone Hcl* (Trazodone Hcl*) 100 Mg Tablet, 300 MG PO QHS, #30 TAB 01/19/16 Estrogen,Conj-Medroxyprogest Acet (Prempro) 0.3-1.5 Mg Tablet, 1 TAB PO DAILY, TAB 01/19/16 Omeprazole (Omeprazole) 20 Mg Tablet.dr, 20 MG PO AC BREAKFAST 04/26/11 Allergies Allergies: Coded Allergies: No Known Drug Allergies (Unverified Allergy, Unknown, 06/20/17) PMhx/Soc History of Surgery: No Anesthesia Reaction: No Hx Neurological Disorder: No Hx Respiratory Disorders: No Hx Cardiac Disorders: No Hx Psychiatric Problems: Yes Hx Miscellaneous Medical Probl: Yes (drug use) Hx Alcohol Use: Yes Hx Substance Use: Yes (meth ) Hx Tobacco Use: Yes (4cig/day) [facility] Status[facility] History: diabetes Physical Exam Vitals Vital Signs Date Temp Pulse Resp B/P (MAP) Pulse Ox O2 O2 Flow FiO2 Time Delivery Rate 05/25/19 98.1 77 20 169/96 98 Room Air 15:07 (120) 05/25/19 98.1 85 18 167/79 97 Room Air 14:29 (108) 05/25/19 98.1 94 18 224/91 99 13:52 (135) Physical Exam Const: No acute distress Head: Atraumatic Eyes: Normal Conjunctiva ENT: Normal External Ears, Nose and Mouth. Neck: Full range of motion. No meningismus. Resp: Clear to auscultation bilaterally Cardio: Regular rate and rhythm, no murmurs Abd: Soft, non tender, non distended. Normal bowel sounds Skin: No petechiae or rashes Back: No midline or flank tenderness Ext: No cyanosis, or edema Neur: Awake and alert Psych: Normal Mood and Affect Results 24 hrs Current Medications Medications Dose Sig/Eve Start Time Status Last (Trade) Ordered Route PRN Stop Time Admin Dose Reason Admin Nicardipine 30 mg ONCE ONCE 05/25/19 DC 05/25/19 HCl PO 14:30 14:29 (Cardene) 05/25/19 14:31 Ibuprofen 800 mg ONCE ONCE 05/25/19 DC 05/25/19 (Motrin) PO 14:30 14:26 05/25/19 14:31 Procedures/MDM Smoking Cessation Therapy: Pt. was lectured for greater than 3 minutes on the health risks of continued smoking and the benefits of cessation. Patient is a 54-year-old female with hypertension, anxiety, depression who presents with generalized body aches. I doubt serious etiology at this time I believe outpatient management is appropriate. The patient will need to follow- up closely with her primary doctor within 24 to 48 hours. Patient can return for any worsening symptoms. Departure Diagnosis: Primary Impression: Body aches Condition: Fair Patient Instructions: High Blood Pressure (Hypertension), Back Pain (Acute Or Chronic) Referrals: ALBERT MENCHACA MD (PCP) Additional Instructions: Call your primary care doctor TOMORROW for an appointment during the next 1 WEEK.Tell the school secretary that you were referred from this facility.See the doctor sooner or return here if your condition worsens before your appointment time. ALEXANDRA FLORES MD May 25, 2019 18:08
== END 2019-05-25 15:08 | disposition home or self-care (01) ==
LOC: E/R 13:40
DX: R52 Pain, unspecified (principal); F17.210 Nicotine dependence, cigarettes, uncomplicated; I10 Essential (primary) hypertension
CPT/HCPCS: Z7502; Z7610; 99283